=== PATIENT | female | born 1970 | race Caucasian/White ===

== ENCOUNTER 2017-12-03 16:12 | Inpatient (IN) | payer MEDICAID ==
[~2017-12-03] VITALS: Ht 154.9 cm; Wt 146.0 kg
[~2017-12-03 16:12] MED LIST: ALBU18HF2 INH; CEPH500C5 PO; FERR140T2 PO; FLUO20CA39 PO; FURO40TA4 PO; HYDR-4353 PO; INSU100V30 SQ; LEVO50TA8 PO; LISI10TA4 PO; LORA0.5T PO; METF500T PO; MONT10TA24 PO; OMEP20CA10 PO; POTA8TAB8 PO; PRED10TA PO
[2017-12-03 16:31] LABS: ABG BASE EXCESS 5.1 mmol/L (-2.0-3.0); ABG OXYGEN SATURATION 98.1 % (95-98); ABG PCO2 (T) 52.1 mmHg (32.0-45.0); ABG PH (T) 7.393 (7.350-7.450); ABG PO2 (T) 126.8 mmHg (83-108); ALLEN'S TEST Positive; FCOHb 1.5 % (0.5-1.5); FLOW 15 L/min; FMetHb 0.3 % (0.3-1.12); FO2Hb 96.3 % (94-100); TOTAL HEMOGLOBIN 11.1 G/dl (12.0-16.0)
[2017-12-03] MEDS ORDERED: SULF1TAB48 PO (16:40)
[2017-12-03] MEDS ORDERED: nitroGLYCERIN-Tridil 50MG/D5W 250 ML IV PRN (16:41)
[2017-12-03] MEDS ORDERED: furosemide 40mg/4ml inj IV ONE (16:45)
[2017-12-03 16:53] LABS: BASOPHILS # (AUTO) 0.1 X10'3 (0-0.2); BASOPHILS % (AUTO) 0.4 % (0-1); EOSINOPHILS # (AUTO) 0.1 X10'3 (0-0.9); HEMATOCRIT 32.8 % (35.0-45.0); LYMPHOCYTES # (AUTO) 1.2 X10'3 (1.1-4.8); LYMPHOCYTES % (AUTO) 10.9 % (21-51); MEAN CORPUSCULAR HEMOGLOBIN 21.8 PG (27.0-31.0); MEAN CORPUSCULAR HGB CONC 30.5 % (33.0-36.5); MEAN CORPUSCULAR VOLUME 71.4 FL (78-98); MEAN PLATELET VOLUME 9.8 FL (7.4-10.4); MONOCYTES # (AUTO) 0.9 X10'3 (0-0.9); MONOCYTES % (AUTO) 8.1 % (2-12); NEUTROPHILS % (AUTO) 79.6 % (42-75); PLATELET COUNT 329 X10'3 (140-440); RED CELL DISTRIBUTION WIDTH 27.5 % (11.5-14.5); WHITE BLOOD COUNT 11.3 X10'3 (4.5-11.0)
[2017-12-03 17:02] LABS: INR 1.1 INR; PARTIAL THROMBOPLASTIN TIME 24 SECONDS (22-32); PROTHROMBIN TIME 11.5 SECONDS (9.0-12.0)
[2017-12-03 17:08] LABS: ALANINE AMINOTRANSFERASE 22 U/L (12-78); ALBUMIN 3.8 G/DL (3.4-5.0); ALKALINE PHOSPHATASE 96 IU/L (46-116); ANION GAP 9 (8-16); ASPARTATE AMINO TRANSFERASE 14 U/L (10-37); BILIRUBIN,TOTAL 0.7 MG/DL (0.1-1.0); BLOOD UREA NITROGEN 13 MG/DL (7-18); BUN/CREATININE RATIO 15.1 (6.6-38.0); CALCIUM 9.4 MG/DL (8.5-10.1); CHLORIDE 100 MMOL/L (99-107); CREATININE 0.86 MG/DL (0.40-0.90); GLUCOSE 102 MG/DL (70-104); POTASSIUM 4.3 MMOL/L (3.5-5.1); SODIUM 141 MMOL/L (135-145); TOTAL PROTEIN 7.8 G/DL (6.4-8.2); eGFR 70 ML/MIN
[2017-12-03 17:15] LABS: MAGNESIUM 2.2 MG/DL (1.5-2.4)
[2017-12-03] MEDS ORDERED: morphine 4 MG/ML inj SYRINge IV ONE (17:25)
[2017-12-03 17:28] LABS: ANISOCYTOSIS 3+; PLATELET ESTIMATE NORMAL; SCHISTOCYTES FEW; STOMATOCYTES FEW; TARGET CELLS FEW
[2017-12-03] MEDS ORDERED: dextrose ORAL solution 15 GM/59 ML bottle PO PRN ×2 (18:30)
[2017-12-03] MEDS ORDERED: magnesium 1gm/100ml D5W IVPB 100 ML IV PRN (18:30)
[2017-12-03] MEDS ORDERED: potassium Cl 20 mEq SR tablet PO PRN ×2 (18:30)
[2017-12-03] MEDS ORDERED: potassium Cl 40MEQ/NS 500ml 500 ML IV PRN ×2 (18:30)
[2017-12-03] MEDS ORDERED: magnesium 4gm in 100ml NS 100 ML IV PRN (18:30)
[2017-12-03] MEDS ORDERED: acetaminophen 325mg tablet PO PRN ×2 (18:30)
[2017-12-03] MEDS ORDERED: insulin Lispro (HumaLOG) vial - multi-dose SQ SCH (18:30)
[2017-12-03] MEDS ORDERED: MESSAGE TO PHARMACY PO ONE (18:30)
[2017-12-03] MEDS ORDERED: magnesium hydroxide 30ml (MOM) UD suspension PO PRN (18:30)
[2017-12-03] MEDS ORDERED: dextrose 50%-water 50ml dispensing syringe IV PRN ×2 (18:30)
[2017-12-03] MEDS ORDERED: glucagon, human recombinant 1mg kit SUBCUT PRN (18:30)
[2017-12-03] MEDS ORDERED: magnesium Cl slow-release 64mg tablet PO PRN (18:30)
[2017-12-03] MEDS ORDERED: iohexol 350MG/ML 100ml bottle IV ONE (18:40)
[2017-12-03 19:05] LABS: ABG BASE EXCESS 6.6 mmol/L (-2.0-3.0); ABG HCO3 32.3 mmol/L (22.0-26.0); ABG OXYGEN SATURATION 95.8 % (95-98); ABG PCO2 (T) 51.7 mmHg (32.0-45.0); ABG PH (T) 7.413 (7.350-7.450); ABG PO2 (T) 86.1 mmHg (83-108); ALLEN'S TEST Positive; FCOHb 1.1 % (0.5-1.5); FMetHb 0.3 % (0.3-1.12); FO2Hb 94.5 % (94-100); MINUTE VOLUME 13 L/min; PATIENT TEMPERATURE 36.8; RESPIRATORY RATE 16 b/min; RESPIRATORY RATE (OBSERVED) 28 b/min; TOTAL HEMOGLOBIN 10.9 G/dl (12.0-16.0)
[2017-12-03 19:44] LABS: HEMOGLOBIN A1C 6.6 % (4.5-6.2)
[2017-12-03 20:00] VITALS: BP 107/46
[2017-12-03] MEDS: albuterol 2.5 MG/3 ML nebule NEB SCH ×2 (20:30→23:59)
[2017-12-03] MEDS ORDERED: non-formulary drug (Albuterol Sulfate (Ventolin Hfa) 2 PUFFS) INH SCH (21:00)
[2017-12-03] MEDS: insulin glargine (Lantus) pen - multi-dose SQ SCH (21:00)
[2017-12-03] MEDS: LORazepam 0.5 MG tablet PO SCH (21:21)
[2017-12-03] MEDS: potassium chloride 8mEq ER tablet PO SCH (21:22)
[2017-12-03] MEDS: heparin, porcine 5000 units/ml vial SQ SCH (21:26)
[2017-12-03] MEDS: furosemide 10 MG/1 ML 10ml inj IV SCH (21:27)
[2017-12-03 22:00] VITALS: BP 120/61
[2017-12-03] MEDS: HYDROcodone/acetaminophen 10/325mg tab PO PRN (22:15)
[2017-12-04] VITALS (8 sets, daily range): BP systolic 99–167; BP diastolic 53–90
[2017-12-04] MEDS: morphine 2 MG/ML inj. syringe IV PRN ×4 (00:20→18:00)
[2017-12-04] MEDS: LORazepam 0.5 MG tablet PO SCH ×4 (02:00→19:42)
[2017-12-04] MEDS: albuterol 2.5 MG/3 ML nebule NEB SCH ×6 (03:56→23:49)
[2017-12-04 06:08] LABS: BASOPHILS # (AUTO) 0.1 X10'3 (0-0.2); EOSINOPHILS # (AUTO) 0.2 X10'3 (0-0.9); EOSINOPHILS % (AUTO) 2.2 % (0-6); HEMATOCRIT 31.5 % (35.0-45.0); HEMOGLOBIN 9.6 g/dl (12.0-16.0); LYMPHOCYTES % (AUTO) 19.9 % (21-51); MEAN CORPUSCULAR HEMOGLOBIN 21.9 PG (27.0-31.0); MEAN CORPUSCULAR HGB CONC 30.6 % (33.0-36.5); MEAN CORPUSCULAR VOLUME 71.5 FL (78-98); MEAN PLATELET VOLUME 10.2 FL (7.4-10.4); MONOCYTES % (AUTO) 10.5 % (2-12); NEUTROPHILS # (AUTO) 6.6 X10'3 (1.8-7.7); NEUTROPHILS % (AUTO) 66.4 % (42-75); PLATELET COUNT 305 X10'3 (140-440); RED CELL DISTRIBUTION WIDTH 27.7 % (11.5-14.5); WHITE BLOOD COUNT 9.9 X10'3 (4.5-11.0)
[2017-12-04 06:20] LABS: ALBUMIN 3.7 G/DL (3.4-5.0); ANION GAP 8 (8-16); BLOOD UREA NITROGEN 13 MG/DL (7-18); BUN/CREATININE RATIO 14.1 (6.6-38.0); CALCIUM 9.3 MG/DL (8.5-10.1); CHLORIDE 98 MMOL/L (99-107); CHOL/HDL RATIO 5.2 (0.00-4.99); CHOLESTEROL 141 MG/DL (0-200); CREATININE 0.92 MG/DL (0.40-0.90); GLUCOSE 98 MG/DL (70-104); HDL CHOLESTEROL 27 MG/DL (35-60); LDL CHOLESTEROL 91 MG/DL (50-100); MAGNESIUM 2.1 MG/DL (1.5-2.4); POTASSIUM 3.6 MMOL/L (3.5-5.1); SODIUM 141 MMOL/L (135-145); TOTAL CARBON DIOXIDE 35.3 MMOL/L (24-32); TRIGLYCERIDES 162 MG/DL (20-135); eGFR 65 ML/MIN
[2017-12-04 07:05] LABS: PLATELET ESTIMATE NORMAL
[2017-12-04 07:06] LABS: ANISOCYTOSIS 3+; HYPOCHROMASIA 1+; POLYCHROMASIA FEW; STOMATOCYTES 1+
[2017-12-04 07:07] LABS: TARGET CELLS FEW
[2017-12-04] MEDS: heparin, porcine 5000 units/ml vial SQ SCH ×2 (07:23→19:43)
[2017-12-04] MEDS: levoTHYROXINE 25mcg tablet PO SCH (07:23)
[2017-12-04] MEDS: lisinopril 10 MG tablet PO SCH (07:23)
[2017-12-04] MEDS: pantoprazole 40mg Tablet.DR PO SCH (07:23)
[2017-12-04] MEDS: potassium chloride 8mEq ER tablet PO SCH ×2 (07:23→11:56)
[2017-12-04] MEDS: FLUoxetine 20mg capsule PO SCH (07:24)
[2017-12-04] MEDS: montelukast 10mg tablet PO SCH (07:24)
[2017-12-04] MEDS: furosemide 10 MG/1 ML 10ml inj IV SCH ×2 (07:25→15:43)
[2017-12-04] MEDS: K and/or MAG REPLACEMENT MC SCH (08:00)
[2017-12-04] MEDS: HYDROcodone/acetaminophen 10/325mg tab PO PRN ×3 (09:05→21:57)
[2017-12-04] MEDS ORDERED: furosemide 20 MG/2 ML vial IV ONE (09:35)
[2017-12-04] MEDS: CefTRIAXone/D5W-Rocephin 1gm 50 ML IV SCH (14:16)
[2017-12-04 16:29] LABS: CLARITY,URINE CLEAR (Clear); GLUCOSE, URINE NEGATIVE (Neg); KETONES,URINE NEGATIVE (Neg); LEUKOCYTE ESTERASE ,URINE NEGATIVE (Neg); NITRITES, URINE NEGATIVE (Neg); OCCULT BLOOD,URINE NEGATIVE (Neg); PH,URINE 7.5 (4.8-8.0); PROTEIN,URINE NEGATIVE (Neg); UROBILINOGEN,URINE 0.2 E.U/dL (0.2-1.0)
[2017-12-04 16:31] LABS: COLOR,URINE COLORLESS (Yellow)
[2017-12-04 16:32] LABS: UA COLLECTION TYPE NON-SPECIFIED
[2017-12-04] MEDS ORDERED: vancomycin/NS 1 GM ADD-VANTAGE 250 ML IV SCH (20:00)
[2017-12-04] MEDS: temazepam 15mg capsule PO PRN (20:27)
[2017-12-04] MEDS: potassium Cl 20 mEq SR tablet PO SCH (20:27)
[2017-12-04] MEDS: insulin glargine (Lantus) pen - multi-dose SQ SCH (21:00)
[2017-12-05] MEDS: furosemide 10 MG/1 ML 10ml inj IV SCH ×4 (00:07→23:52)
[2017-12-05] MEDS: morphine 2 MG/ML inj. syringe IV PRN ×4 (00:09→19:20)
[2017-12-05] MEDS: LORazepam 0.5 MG tablet PO SCH ×4 (02:17→20:25)
[2017-12-05 03:00] VITALS: BP 91/54
[2017-12-05] MEDS: albuterol 2.5 MG/3 ML nebule NEB SCH ×6 (03:33→22:52)
[2017-12-05] MEDS: HYDROcodone/acetaminophen 10/325mg tab PO PRN ×4 (04:13→23:52)
[2017-12-05 06:00] VITALS: BP 123/73
[2017-12-05 07:05] LABS: ALBUMIN 3.6 G/DL (3.4-5.0); ANION GAP 7 (8-16); BLOOD UREA NITROGEN 16 MG/DL (7-18); CALCIUM 8.8 MG/DL (8.5-10.1); CHLORIDE 97 MMOL/L (99-107); GLUCOSE 100 MG/DL (70-104); MAGNESIUM 2.1 MG/DL (1.5-2.4); POTASSIUM 3.9 MMOL/L (3.5-5.1); SODIUM 141 MMOL/L (135-145); TOTAL CARBON DIOXIDE 36.8 MMOL/L (24-32); eGFR 59 ML/MIN
[2017-12-05 07:06] LABS: BASOPHILS # (AUTO) 0.1 X10'3 (0-0.2); BASOPHILS % (AUTO) 1.1 % (0-1); EOSINOPHILS # (AUTO) 0.2 X10'3 (0-0.9); HEMATOCRIT 33.1 % (35.0-45.0); HEMOGLOBIN 9.8 g/dl (12.0-16.0); LYMPHOCYTES # (AUTO) 1.5 X10'3 (1.1-4.8); LYMPHOCYTES % (AUTO) 17.2 % (21-51); MEAN CORPUSCULAR HEMOGLOBIN 21.6 PG (27.0-31.0); MEAN CORPUSCULAR HGB CONC 29.6 % (33.0-36.5); MEAN CORPUSCULAR VOLUME 72.8 FL (78-98); MEAN PLATELET VOLUME 10.3 FL (7.4-10.4); MONOCYTES # (AUTO) 0.9 X10'3 (0-0.9); MONOCYTES % (AUTO) 10.6 % (2-12); NEUTROPHILS # (AUTO) 5.9 X10'3 (1.8-7.7); NEUTROPHILS % (AUTO) 69.1 % (42-75); PLATELET COUNT 340 X10'3 (140-440); RED BLOOD COUNT 4.55 X10'6 (4.20-5.60); RED CELL DISTRIBUTION WIDTH 27.3 % (11.5-14.5); WHITE BLOOD COUNT 8.6 X10'3 (4.5-11.0)
[2017-12-05] MEDS: pantoprazole 40mg Tablet.DR PO SCH (07:38)
[2017-12-05] MEDS: montelukast 10mg tablet PO SCH (07:38)
[2017-12-05] MEDS: lisinopril 10 MG tablet PO SCH (07:38)
[2017-12-05] MEDS: levoTHYROXINE 25mcg tablet PO SCH (07:38)
[2017-12-05] MEDS: potassium Cl 20 mEq SR tablet PO SCH ×3 (07:38→20:25)
[2017-12-05] MEDS: FLUoxetine 20mg capsule PO SCH (07:38)
[2017-12-05] MEDS: CefTRIAXone/D5W-Rocephin 1gm 50 ML IV SCH (07:39)
[2017-12-05] MEDS: heparin, porcine 5000 units/ml vial SQ SCH ×2 (07:41→20:33)
[2017-12-05] MEDS: K and/or MAG REPLACEMENT MC SCH (07:56)
[2017-12-05 09:14] LABS: PLATELET ESTIMATE NORMAL
[2017-12-05 09:15] LABS: ANISOCYTOSIS 3+; HYPOCHROMASIA 1+; MICROCYTOSIS 1+; POLYCHROMASIA 1+; STOMATOCYTES 2+
[2017-12-05] MEDS: mag hydrox/Alum hydrox/simeth 30ml oral suspension PO PRN (09:39)
[2017-12-05 11:00] VITALS: BP 114/66
[2017-12-05] MEDS ORDERED: VANCOMYCIN LEVEL IV NR (13:30)
[2017-12-05 15:00] VITALS: BP 121/101
[2017-12-05] MEDS: vancomycin inj 1,250 MG in normal saline 250ml IV soln 250 ML IV SCH ×2 (15:59→23:54)
[2017-12-05 19:00] VITALS: BP 118/67
[2017-12-05] MEDS: lactobacillus rhamnosus 10,000 MMU CELLS/CAPSULE PO SCH (20:25)
[2017-12-05] MEDS: insulin glargine (Lantus) pen - multi-dose SQ SCH (21:00)
[2017-12-05] MEDS: temazepam 15mg capsule PO PRN (21:55)
[2017-12-05 23:00] VITALS: BP 115/70
[2017-12-06] MEDS: LORazepam 0.5 MG tablet PO SCH ×4 (01:40→20:21)
[2017-12-06] MEDS: morphine 2 MG/ML inj. syringe IV PRN ×4 (01:41→22:08)
[2017-12-06] MEDS: albuterol 2.5 MG/3 ML nebule NEB SCH ×6 (02:57→22:49)
[2017-12-06 03:00] VITALS: BP 116/70
[2017-12-06 06:00] VITALS: BP 140/75
[2017-12-06 06:46] LABS: ALBUMIN 3.6 G/DL (3.4-5.0); ANION GAP 7 (8-16); BLOOD UREA NITROGEN 15 MG/DL (7-18); BUN/CREATININE RATIO 17.2 (6.6-38.0); CALCIUM 8.5 MG/DL (8.5-10.1); CHLORIDE 98 MMOL/L (99-107); CREATININE 0.87 MG/DL (0.40-0.90); GLUCOSE 103 MG/DL (70-104); MAGNESIUM 2.2 MG/DL (1.5-2.4); POTASSIUM 3.9 MMOL/L (3.5-5.1); SODIUM 139 MMOL/L (135-145); eGFR 69 ML/MIN
[2017-12-06] MEDS: HYDROcodone/acetaminophen 10/325mg tab PO PRN ×3 (06:57→20:23)
[2017-12-06] MEDS: pantoprazole 40mg Tablet.DR PO SCH (06:57)
[2017-12-06] MEDS: levoTHYROXINE 25mcg tablet PO SCH (06:58)
[2017-12-06] MEDS: lisinopril 10 MG tablet PO SCH (07:52)
[2017-12-06] MEDS: potassium Cl 20 mEq SR tablet PO SCH ×3 (07:52→20:21)
[2017-12-06] MEDS: FLUoxetine 20mg capsule PO SCH (07:52)
[2017-12-06] MEDS: vancomycin inj 1,250 MG in normal saline 250ml IV soln 250 ML IV SCH ×3 (07:52→22:50)
[2017-12-06] MEDS: montelukast 10mg tablet PO SCH (07:52)
[2017-12-06] MEDS: lactobacillus rhamnosus 10,000 MMU CELLS/CAPSULE PO SCH ×2 (07:52→20:22)
[2017-12-06] MEDS: heparin, porcine 5000 units/ml vial SQ SCH ×2 (07:53→20:24)
[2017-12-06] MEDS: K and/or MAG REPLACEMENT MC SCH (08:00)
[2017-12-06] MEDS: furosemide 10 MG/1 ML 10ml inj IV SCH ×2 (09:03→15:32)
[2017-12-06] MEDS: CefTRIAXone/D5W-Rocephin 1gm 50 ML IV SCH (10:58)
[2017-12-06 11:00] VITALS: BP 116/71
[2017-12-06] MEDS ORDERED: VANCOMYCIN LEVEL IV NR (14:30)
[2017-12-06 15:51] VITALS: BP 125/71
[2017-12-06 19:00] VITALS: BP 130/78
[2017-12-06] MEDS: insulin glargine (Lantus) pen - multi-dose SQ SCH (21:00)
[2017-12-06] MEDS: temazepam 15mg capsule PO PRN (22:56)
[2017-12-06 23:00] VITALS: BP 110/63
[2017-12-07] MEDS: furosemide 10 MG/1 ML 10ml inj IV SCH ×3 (00:23→20:17)
[2017-12-07] MEDS: LORazepam 0.5 MG tablet PO SCH ×4 (02:00→20:17)
[2017-12-07 03:00] VITALS: BP 109/72
[2017-12-07] MEDS: albuterol 2.5 MG/3 ML nebule NEB SCH ×6 (03:05→23:12)
[2017-12-07 04:28] LABS: ALBUMIN 3.3 G/DL (3.4-5.0); ANION GAP 5 (8-16); BLOOD UREA NITROGEN 19 MG/DL (7-18); BUN/CREATININE RATIO 17.6 (6.6-38.0); CALCIUM 8.8 MG/DL (8.5-10.1); CHLORIDE 98 MMOL/L (99-107); CREATININE 1.08 MG/DL (0.40-0.90); GLUCOSE 97 MG/DL (70-104); MAGNESIUM 2.2 MG/DL (1.5-2.4); POTASSIUM 3.9 MMOL/L (3.5-5.1); SODIUM 141 MMOL/L (135-145); TOTAL CARBON DIOXIDE 38.4 MMOL/L (24-32); eGFR 54 ML/MIN
[2017-12-07 04:35] LABS: VANCOMYCIN,TROUGH 33.1 UG/ML (6.0-14.0)
[2017-12-07] MEDS: morphine 2 MG/ML inj. syringe IV PRN ×5 (04:46→21:46)
[2017-12-07 05:31] LABS: BASOPHILS # (AUTO) 0.1 X10'3 (0-0.2); BASOPHILS % (AUTO) 0.8 % (0-1); EOSINOPHILS # (AUTO) 0.2 X10'3 (0-0.9); EOSINOPHILS % (AUTO) 2.6 % (0-6); HEMATOCRIT 30.9 % (35.0-45.0); HEMOGLOBIN 9.2 g/dl (12.0-16.0); LYMPHOCYTES # (AUTO) 1.6 X10'3 (1.1-4.8); LYMPHOCYTES % (AUTO) 16.5 % (21-51); MEAN CORPUSCULAR HEMOGLOBIN 21.8 PG (27.0-31.0); MEAN CORPUSCULAR HGB CONC 29.8 % (33.0-36.5); MEAN CORPUSCULAR VOLUME 72.9 FL (78-98); MEAN PLATELET VOLUME 10.6 FL (7.4-10.4); MONOCYTES # (AUTO) 1.3 X10'3 (0-0.9); MONOCYTES % (AUTO) 13.2 % (2-12); NEUTROPHILS # (AUTO) 6.3 X10'3 (1.8-7.7); NEUTROPHILS % (AUTO) 66.9 % (42-75); PLATELET COUNT 337 X10'3 (140-440); RED BLOOD COUNT 4.24 X10'6 (4.20-5.60); WHITE BLOOD COUNT 9.5 X10'3 (4.5-11.0)
[2017-12-07 06:00] VITALS: BP 107/46
[2017-12-07] MEDS ORDERED: VANCOMYCIN LEVEL IV ONE ×2 (06:30→22:30)
[2017-12-07 07:13] LABS: ANISOCYTOSIS 3+; LARGE PLATELETS FEW; PLATELET ESTIMATE NORMAL
[2017-12-07 07:15] LABS: GIANT PLATELET FEW; MICROCYTOSIS 1+
[2017-12-07 07:16] LABS: HYPOCHROMASIA 1+
[2017-12-07] MEDS: lisinopril 10 MG tablet PO SCH (08:00)
[2017-12-07] MEDS: K and/or MAG REPLACEMENT MC SCH (08:00)
[2017-12-07] MEDS: vancomycin inj 1,250 MG in normal saline 250ml IV soln 250 ML IV SCH ×2 (08:08→14:45)
[2017-12-07] MEDS: CefTRIAXone/D5W-Rocephin 1gm 50 ML IV SCH (08:08)
[2017-12-07] MEDS: pantoprazole 40mg Tablet.DR PO SCH (08:08)
[2017-12-07] MEDS: HYDROcodone/acetaminophen 10/325mg tab PO PRN ×2 (08:09→14:46)
[2017-12-07] MEDS: montelukast 10mg tablet PO SCH (08:09)
[2017-12-07] MEDS: lactobacillus rhamnosus 10,000 MMU CELLS/CAPSULE PO SCH ×2 (08:09→20:17)
[2017-12-07] MEDS: levoTHYROXINE 25mcg tablet PO SCH (08:09)
[2017-12-07] MEDS: potassium Cl 20 mEq SR tablet PO SCH ×3 (08:09→20:17)
[2017-12-07] MEDS: heparin, porcine 5000 units/ml vial SQ SCH ×2 (08:11→20:17)
[2017-12-07] MEDS: FLUoxetine 20mg capsule PO SCH (08:12)
[2017-12-07 11:00] VITALS: BP 115/53
[2017-12-07 15:00] VITALS: BP 129/83
[2017-12-07 19:00] VITALS: BP 140/84
[2017-12-07] MEDS ORDERED: CefTRIAXone/D5W-Rocephin 1gm 50 ML IV ONE (19:15)
[2017-12-07] MEDS ORDERED: clotrimazole 1% vaginal cream 45gm VG SCH (20:00)
[2017-12-07] MEDS: clotrimazole 1% vaginal cream 45gm VG SCH (20:30)
[2017-12-07] MEDS: linezolid 600mg tablet PO SCH (20:30)
[2017-12-07] MEDS: insulin glargine (Lantus) pen - multi-dose SQ SCH (21:00)
[2017-12-07] MEDS: temazepam 15mg capsule PO PRN (21:35)
[2017-12-07 23:00] VITALS: BP 116/59
[2017-12-08] MEDS: LORazepam 0.5 MG tablet PO SCH ×4 (02:29→20:09)
[2017-12-08] MEDS: morphine 2 MG/ML inj. syringe IV PRN ×4 (02:30→17:19)
[2017-12-08] MEDS: albuterol 2.5 MG/3 ML nebule NEB SCH ×6 (03:14→23:37)
[2017-12-08 06:00] VITALS: BP 111/51
[2017-12-08 06:06] LABS: ANION GAP 7 (8-16); BLOOD UREA NITROGEN 19 MG/DL (7-18); BUN/CREATININE RATIO 23.2 (6.6-38.0); CALCIUM 8.7 MG/DL (8.5-10.1); CHLORIDE 98 MMOL/L (99-107); CREATININE 0.82 MG/DL (0.40-0.90); GLUCOSE 120 MG/DL (70-104); MAGNESIUM 2.3 MG/DL (1.5-2.4); POTASSIUM 3.6 MMOL/L (3.5-5.1); SODIUM 140 MMOL/L (135-145); TOTAL CARBON DIOXIDE 35.4 MMOL/L (24-32); eGFR 74 ML/MIN
[2017-12-08 06:07] LABS: ALBUMIN 3.4 G/DL (3.4-5.0)
[2017-12-08] MEDS: levoTHYROXINE 25mcg tablet PO SCH (07:39)
[2017-12-08] MEDS: pantoprazole 40mg Tablet.DR PO SCH (07:39)
[2017-12-08] MEDS: potassium Cl 20 mEq SR tablet PO SCH ×3 (07:39→20:09)
[2017-12-08] MEDS: FLUoxetine 20mg capsule PO SCH (07:40)
[2017-12-08] MEDS: lisinopril 10 MG tablet PO SCH (07:40)
[2017-12-08] MEDS: montelukast 10mg tablet PO SCH (07:40)
[2017-12-08] MEDS: linezolid 600mg tablet PO SCH ×2 (07:40→20:09)
[2017-12-08] MEDS: heparin, porcine 5000 units/ml vial SQ SCH ×2 (07:40→20:09)
[2017-12-08] MEDS: lactobacillus rhamnosus 10,000 MMU CELLS/CAPSULE PO SCH ×2 (07:41→20:09)
[2017-12-08] MEDS: furosemide 10 MG/1 ML 10ml inj IV SCH ×2 (07:41→20:10)
[2017-12-08] MEDS: CefTRIAXone 2gm/D5W 50ml IV SCH (07:42)
[2017-12-08] MEDS: K and/or MAG REPLACEMENT MC SCH (08:00)
[2017-12-08] MEDS: clotrimazole 1% vaginal cream 45gm VG SCH ×2 (08:00→20:23)
[2017-12-08 11:00] VITALS: BP 110/54
[2017-12-08 15:00] VITALS: BP 86/44
[2017-12-08] MEDS: HYDROcodone/acetaminophen 10/325mg tab PO PRN ×2 (15:16→20:13)
[2017-12-08 19:00] VITALS: BP 127/61
[2017-12-08] MEDS: insulin glargine (Lantus) pen - multi-dose SQ SCH (21:00)
[2017-12-08 23:00] VITALS: BP 100/42
[2017-12-09] MEDS: LORazepam 0.5 MG tablet PO SCH ×4 (02:11→19:47)
[2017-12-09] MEDS: morphine 2 MG/ML inj. syringe IV PRN ×5 (02:11→23:29)
[2017-12-09 03:00] VITALS: BP 102/41
[2017-12-09] MEDS: albuterol 2.5 MG/3 ML nebule NEB SCH ×7 (03:05→23:30)
[2017-12-09 06:00] VITALS: BP 116/65
[2017-12-09] MEDS: HYDROcodone/acetaminophen 10/325mg tab PO PRN ×3 (07:39→20:56)
[2017-12-09] MEDS: potassium Cl 20 mEq SR tablet PO SCH ×3 (08:00→20:56)
[2017-12-09] MEDS: K and/or MAG REPLACEMENT MC SCH (08:00)
[2017-12-09] MEDS: lisinopril 10 MG tablet PO SCH (08:00)
[2017-12-09] MEDS: CefTRIAXone 2gm/D5W 50ml IV SCH (09:06)
[2017-12-09] MEDS: levoTHYROXINE 25mcg tablet PO SCH (09:09)
[2017-12-09] MEDS: linezolid 600mg tablet PO SCH ×2 (09:09→19:48)
[2017-12-09] MEDS: furosemide 10 MG/1 ML 10ml inj IV SCH ×2 (09:10→19:47)
[2017-12-09] MEDS: montelukast 10mg tablet PO SCH (09:10)
[2017-12-09] MEDS: FLUoxetine 20mg capsule PO SCH (09:10)
[2017-12-09] MEDS: heparin, porcine 5000 units/ml vial SQ SCH ×2 (09:11→19:48)
[2017-12-09] MEDS: pantoprazole 40mg Tablet.DR PO SCH (09:12)
[2017-12-09] MEDS: lactobacillus rhamnosus 10,000 MMU CELLS/CAPSULE PO SCH ×2 (09:12→19:47)
[2017-12-09] MEDS: clotrimazole 1% vaginal cream 45gm VG SCH ×2 (09:13→21:44)
[2017-12-09 11:00] VITALS: BP 111/67
[2017-12-09 15:00] VITALS: BP 122/68
[2017-12-09 19:00] VITALS: BP 102/61
[2017-12-09] MEDS: insulin glargine (Lantus) pen - multi-dose SQ SCH (21:00)
[2017-12-09 23:07] VITALS: BP 107/59
[2017-12-10] MEDS: mag hydrox/Alum hydrox/simeth 30ml oral suspension PO PRN (01:32)
[2017-12-10] MEDS: temazepam 15mg capsule PO PRN ×2 (01:53→20:16)
[2017-12-10] MEDS: LORazepam 0.5 MG tablet PO SCH ×4 (01:53→20:11)
[2017-12-10 03:00] VITALS: BP 131/51
[2017-12-10] MEDS: albuterol 2.5 MG/3 ML nebule NEB SCH ×6 (03:01→23:25)
[2017-12-10] MEDS: morphine 2 MG/ML inj. syringe IV PRN ×5 (04:08→22:37)
[2017-12-10] MEDS: HYDROcodone/acetaminophen 10/325mg tab PO PRN ×3 (06:25→20:17)
[2017-12-10 06:55] VITALS: BP 95/73
[2017-12-10] MEDS: K and/or MAG REPLACEMENT MC SCH (08:00)
[2017-12-10] MEDS: pantoprazole 40mg Tablet.DR PO SCH (08:02)
[2017-12-10] MEDS: montelukast 10mg tablet PO SCH (08:02)
[2017-12-10] MEDS: linezolid 600mg tablet PO SCH ×2 (08:02→20:11)
[2017-12-10] MEDS: levoTHYROXINE 25mcg tablet PO SCH (08:02)
[2017-12-10] MEDS: lactobacillus rhamnosus 10,000 MMU CELLS/CAPSULE PO SCH ×2 (08:02→20:11)
[2017-12-10] MEDS: FLUoxetine 20mg capsule PO SCH (08:03)
[2017-12-10] MEDS: CefTRIAXone 2gm/D5W 50ml IV SCH (08:04)
[2017-12-10] MEDS: heparin, porcine 5000 units/ml vial SQ SCH ×2 (08:05→20:10)
[2017-12-10 08:20] VITALS: BP 110/61
[2017-12-10] MEDS: furosemide 10 MG/1 ML 10ml inj IV SCH ×2 (08:25→20:11)
[2017-12-10] MEDS: clotrimazole 1% vaginal cream 45gm VG SCH ×2 (08:26→20:17)
[2017-12-10] MEDS: lisinopril 10 MG tablet PO SCH (08:26)
[2017-12-10] MEDS: potassium Cl 20 mEq SR tablet PO SCH ×3 (08:27→20:17)
[2017-12-10 11:00] VITALS: BP 104/57
[2017-12-10 19:00] VITALS: BP 123/64
[2017-12-10] MEDS: insulin glargine (Lantus) pen - multi-dose SQ SCH (20:56)
[2017-12-11] VITALS (7 sets, daily range): BP systolic 92–116; BP diastolic 39–67
[2017-12-11] MEDS: LORazepam 0.5 MG tablet PO SCH ×4 (02:17→20:19)
[2017-12-11] MEDS: morphine 2 MG/ML inj. syringe IV PRN ×6 (02:49→23:51)
[2017-12-11] MEDS: albuterol 2.5 MG/3 ML nebule NEB SCH ×6 (03:26→23:23)
[2017-12-11] MEDS: HYDROcodone/acetaminophen 10/325mg tab PO PRN ×4 (04:36→21:31)
[2017-12-11 05:34] LABS: BASOPHILS # (AUTO) 0.1 X10'3 (0-0.2); BASOPHILS % (AUTO) 0.9 % (0-1); EOSINOPHILS # (AUTO) 0.2 X10'3 (0-0.9); EOSINOPHILS % (AUTO) 1.9 % (0-6); HEMATOCRIT 29.4 % (35.0-45.0); HEMOGLOBIN 9.2 g/dl (12.0-16.0); LYMPHOCYTES # (AUTO) 1.1 X10'3 (1.1-4.8); LYMPHOCYTES % (AUTO) 13.5 % (21-51); MEAN CORPUSCULAR HEMOGLOBIN 22.8 PG (27.0-31.0); MEAN CORPUSCULAR HGB CONC 31.3 % (33.0-36.5); MEAN PLATELET VOLUME 10.4 FL (7.4-10.4); MONOCYTES # (AUTO) 0.7 X10'3 (0-0.9); MONOCYTES % (AUTO) 8.9 % (2-12); NEUTROPHILS # (AUTO) 6.3 X10'3 (1.8-7.7); NEUTROPHILS % (AUTO) 74.8 % (42-75); PLATELET COUNT 328 X10'3 (140-440); RED BLOOD COUNT 4.03 X10'6 (4.20-5.60); RED CELL DISTRIBUTION WIDTH 24.7 % (11.5-14.5); WHITE BLOOD COUNT 8.4 X10'3 (4.5-11.0)
[2017-12-11 05:40] LABS: ALBUMIN 3.6 G/DL (3.4-5.0); ANION GAP 7 (8-16); BLOOD UREA NITROGEN 30 MG/DL (7-18); BUN/CREATININE RATIO 24.6 (6.6-38.0); CALCIUM 8.9 MG/DL (8.5-10.1); CHLORIDE 98 MMOL/L (99-107); CREATININE 1.22 MG/DL (0.40-0.90); GLUCOSE 116 MG/DL (70-104); POTASSIUM 4.2 MMOL/L (3.5-5.1); SODIUM 138 MMOL/L (135-145); TOTAL CARBON DIOXIDE 33.2 MMOL/L (24-32); eGFR 47 ML/MIN
[2017-12-11 06:27] LABS: LARGE PLATELETS FEW; PLATELET ESTIMATE NORMAL
[2017-12-11] MEDS: heparin, porcine 5000 units/ml vial SQ SCH ×2 (07:57→20:20)
[2017-12-11] MEDS: clotrimazole 1% vaginal cream 45gm VG SCH ×2 (07:57→21:32)
[2017-12-11] MEDS: lisinopril 10 MG tablet PO SCH (07:58)
[2017-12-11] MEDS: lactobacillus rhamnosus 10,000 MMU CELLS/CAPSULE PO SCH ×2 (07:58→20:19)
[2017-12-11] MEDS: furosemide 10 MG/1 ML 10ml inj IV SCH ×2 (07:58→20:19)
[2017-12-11] MEDS: CefTRIAXone 2gm/D5W 50ml IV SCH (07:58)
[2017-12-11] MEDS: FLUoxetine 20mg capsule PO SCH (07:58)
[2017-12-11] MEDS: levoTHYROXINE 25mcg tablet PO SCH (07:59)
[2017-12-11] MEDS: pantoprazole 40mg Tablet.DR PO SCH (07:59)
[2017-12-11] MEDS: potassium Cl 20 mEq SR tablet PO SCH ×3 (07:59→20:19)
[2017-12-11] MEDS: montelukast 10mg tablet PO SCH (07:59)
[2017-12-11] MEDS: K and/or MAG REPLACEMENT MC SCH (08:00)
[2017-12-11] MEDS: linezolid 600mg tablet PO SCH ×2 (09:57→20:35)
[2017-12-11] MEDS: ondansetron/PF 4mg/2ml inj IV PRN (15:46)
[2017-12-11] MEDS: insulin glargine (Lantus) pen - multi-dose SQ SCH (21:00)
[2017-12-11] MEDS: temazepam 15mg capsule PO PRN (21:31)
[2017-12-12] VITALS (7 sets, daily range): BP systolic 91–111; BP diastolic 35–56
[2017-12-12] MEDS: LORazepam 0.5 MG tablet PO SCH ×4 (02:43→21:08)
[2017-12-12] MEDS: morphine 2 MG/ML inj. syringe IV PRN ×4 (04:00→19:12)
[2017-12-12] MEDS: albuterol 2.5 MG/3 ML nebule NEB SCH ×6 (04:00→22:56)
[2017-12-12 04:08] LABS: ALBUMIN 3.8 G/DL (3.4-5.0); ANION GAP 3 (8-16); BLOOD UREA NITROGEN 31 MG/DL (7-18); BUN/CREATININE RATIO 23.7 (6.6-38.0); CALCIUM 9.4 MG/DL (8.5-10.1); CHLORIDE 98 MMOL/L (99-107); CREATININE 1.31 MG/DL (0.40-0.90); GLUCOSE 116 MG/DL (70-104); POTASSIUM 4.5 MMOL/L (3.5-5.1); SODIUM 138 MMOL/L (135-145); TOTAL CARBON DIOXIDE 36.8 MMOL/L (24-32); eGFR 43 ML/MIN
[2017-12-12 04:46] LABS: BASOPHILS # (AUTO) 0.1 X10'3 (0-0.2); BASOPHILS % (AUTO) 0.9 % (0-1); EOSINOPHILS # (AUTO) 0.2 X10'3 (0-0.9); EOSINOPHILS % (AUTO) 2.4 % (0-6); HEMATOCRIT 30.2 % (35.0-45.0); HEMOGLOBIN 9.5 g/dl (12.0-16.0); LYMPHOCYTES % (AUTO) 11.5 % (21-51); MEAN CORPUSCULAR HGB CONC 31.5 % (33.0-36.5); MEAN CORPUSCULAR VOLUME 73.1 FL (78-98); MEAN PLATELET VOLUME 10.5 FL (7.4-10.4); MONOCYTES # (AUTO) 0.8 X10'3 (0-0.9); MONOCYTES % (AUTO) 8.9 % (2-12); NEUTROPHILS # (AUTO) 6.9 X10'3 (1.8-7.7); NEUTROPHILS % (AUTO) 76.3 % (42-75); PLATELET COUNT 344 X10'3 (140-440); RED BLOOD COUNT 4.13 X10'6 (4.20-5.60)
[2017-12-12 07:42] LABS: PLATELET ESTIMATE NORMAL
[2017-12-12 07:43] LABS: ANISOCYTOSIS 3+; MICROCYTOSIS 2+; POLYCHROMASIA 1+; STOMATOCYTES 2+; TARGET CELLS FEW
[2017-12-12] MEDS: FLUoxetine 20mg capsule PO SCH (07:48)
[2017-12-12] MEDS: levoTHYROXINE 25mcg tablet PO SCH (07:48)
[2017-12-12] MEDS: linezolid 600mg tablet PO SCH ×2 (07:49→19:04)
[2017-12-12] MEDS: montelukast 10mg tablet PO SCH (07:49)
[2017-12-12] MEDS: potassium Cl 20 mEq SR tablet PO SCH ×3 (07:49→21:08)
[2017-12-12] MEDS: lactobacillus rhamnosus 10,000 MMU CELLS/CAPSULE PO SCH ×2 (07:49→19:05)
[2017-12-12] MEDS: pantoprazole 40mg Tablet.DR PO SCH (07:49)
[2017-12-12] MEDS: lisinopril 10 MG tablet PO SCH (07:49)
[2017-12-12] MEDS: ondansetron/PF 4mg/2ml inj IV PRN ×3 (07:50→23:21)
[2017-12-12] MEDS: CefTRIAXone 2gm/D5W 50ml IV SCH (07:50)
[2017-12-12] MEDS: heparin, porcine 5000 units/ml vial SQ SCH ×2 (07:50→19:04)
[2017-12-12] MEDS: furosemide 10 MG/1 ML 10ml inj IV SCH ×2 (07:50→19:06)
[2017-12-12] MEDS: HYDROcodone/acetaminophen 10/325mg tab PO PRN ×2 (07:51→15:23)
[2017-12-12] MEDS: clotrimazole 1% vaginal cream 45gm VG SCH ×2 (07:59→19:14)
[2017-12-12] MEDS: K and/or MAG REPLACEMENT MC SCH (08:00)
[2017-12-12] MEDS: insulin glargine (Lantus) pen - multi-dose SQ SCH (21:00)
[2017-12-12] MEDS: temazepam 15mg capsule PO PRN (22:15)
[2017-12-13] VITALS (7 sets, daily range): BP systolic 93–125; BP diastolic 50–67
[2017-12-13] MEDS: morphine 2 MG/ML inj. syringe IV PRN ×5 (00:41→21:43)
[2017-12-13] MEDS: LORazepam 0.5 MG tablet PO SCH ×4 (02:46→20:22)
[2017-12-13] MEDS: albuterol 2.5 MG/3 ML nebule NEB SCH ×6 (03:30→23:22)
[2017-12-13] MEDS: HYDROcodone/acetaminophen 10/325mg tab PO PRN ×3 (05:36→20:24)
[2017-12-13 07:11] LABS: HEMATOCRIT 28.7 % (35.0-45.0); HEMOGLOBIN 9.1 g/dl (12.0-16.0); MEAN CORPUSCULAR HEMOGLOBIN 23.2 PG (27.0-31.0); MEAN CORPUSCULAR HGB CONC 31.6 % (33.0-36.5); MEAN CORPUSCULAR VOLUME 73.5 FL (78-98); MEAN PLATELET VOLUME 9.7 FL (7.4-10.4); PLATELET COUNT 323 X10'3 (140-440); RED CELL DISTRIBUTION WIDTH 24.6 % (11.5-14.5); WHITE BLOOD COUNT 11.7 X10'3 (4.5-11.0)
[2017-12-13 07:20] LABS: ALBUMIN 3.5 G/DL (3.4-5.0); ANION GAP 7 (8-16); BLOOD UREA NITROGEN 39 MG/DL (7-18); BUN/CREATININE RATIO 22.3 (6.6-38.0); CALCIUM 9.6 MG/DL (8.5-10.1); CHLORIDE 97 MMOL/L (99-107); CREATININE 1.75 MG/DL (0.40-0.90); GLUCOSE 116 MG/DL (70-104); POTASSIUM 5.2 MMOL/L (3.5-5.1); SODIUM 137 MMOL/L (135-145); TOTAL CARBON DIOXIDE 32.9 MMOL/L (24-32); eGFR 31 ML/MIN
[2017-12-13] MEDS: montelukast 10mg tablet PO SCH (07:22)
[2017-12-13] MEDS: linezolid 600mg tablet PO SCH (07:22)
[2017-12-13] MEDS: ondansetron/PF 4mg/2ml inj IV PRN (07:23)
[2017-12-13] MEDS: pantoprazole 40mg Tablet.DR PO SCH (07:23)
[2017-12-13] MEDS: lactobacillus rhamnosus 10,000 MMU CELLS/CAPSULE PO SCH ×2 (07:24→20:22)
[2017-12-13] MEDS: levoTHYROXINE 25mcg tablet PO SCH (07:24)
[2017-12-13] MEDS: FLUoxetine 20mg capsule PO SCH (07:24)
[2017-12-13] MEDS: CefTRIAXone 2gm/D5W 50ml IV SCH (07:25)
[2017-12-13] MEDS: clotrimazole 1% vaginal cream 45gm VG SCH ×2 (07:29→20:22)
[2017-12-13] MEDS: heparin, porcine 5000 units/ml vial SQ SCH ×2 (07:38→20:22)
[2017-12-13] MEDS: furosemide 10 MG/1 ML 10ml inj IV SCH ×4 (08:00→23:59)
[2017-12-13] MEDS: potassium Cl 20 mEq SR tablet PO SCH ×3 (08:00→21:00)
[2017-12-13] MEDS: K and/or MAG REPLACEMENT MC SCH (08:00)
[2017-12-13] MEDS: lisinopril 10 MG tablet PO SCH (08:00)
[2017-12-13 08:23] LABS: PLATELET ESTIMATE NORMAL; TOTAL CELLS COUNTED 100
[2017-12-13 08:24] LABS: ANISOCYTOSIS 3+
[2017-12-13 08:25] LABS: POLYCHROMASIA 1+
[2017-12-13 08:26] LABS: MICROCYTOSIS 2+
[2017-12-13] MEDS: insulin glargine (Lantus) pen - multi-dose SQ SCH (21:00)
[2017-12-13] MEDS: temazepam 15mg capsule PO PRN (23:56)
[2017-12-14] VITALS (7 sets, daily range): BP systolic 87–118; BP diastolic 44–57
[2017-12-14] MEDS: morphine 2 MG/ML inj. syringe IV PRN ×5 (01:48→22:13)
[2017-12-14] MEDS: LORazepam 0.5 MG tablet PO SCH ×4 (02:00→22:13)
[2017-12-14] MEDS: albuterol 2.5 MG/3 ML nebule NEB SCH ×4 (04:00→23:12)
[2017-12-14] MEDS: furosemide 10 MG/1 ML 10ml inj IV SCH ×3 (07:47→17:24)
[2017-12-14] MEDS: pantoprazole 40mg Tablet.DR PO SCH (07:48)
[2017-12-14] MEDS: lisinopril 10 MG tablet PO SCH (07:48)
[2017-12-14] MEDS: montelukast 10mg tablet PO SCH (07:49)
[2017-12-14] MEDS: levoTHYROXINE 25mcg tablet PO SCH (07:49)
[2017-12-14] MEDS: lactobacillus rhamnosus 10,000 MMU CELLS/CAPSULE PO SCH ×2 (07:49→19:51)
[2017-12-14] MEDS: FLUoxetine 20mg capsule PO SCH (07:49)
[2017-12-14] MEDS: K and/or MAG REPLACEMENT MC SCH (08:00)
[2017-12-14] MEDS ORDERED: HYDROcodone/acetaminophen 10/325mg tab PO PRN (08:55)
[2017-12-14] MEDS ORDERED: benzocaine/menthol oral lozeng 1 EACH BOX MM PRN (09:25)
[2017-12-14 10:12] LABS: EOSINOPHILS # (AUTO) 0.1 X10'3 (0-0.9); MONOCYTES # (AUTO) 0.8 X10'3 (0-0.9)
[2017-12-14 10:17] LABS: ALBUMIN 3.4 G/DL (3.4-5.0); ANION GAP 7 (8-16); BLOOD UREA NITROGEN 40 MG/DL (7-18); BUN/CREATININE RATIO 27.4 (6.6-38.0); CALCIUM 8.8 MG/DL (8.5-10.1); CHLORIDE 97 MMOL/L (99-107); CREATININE 1.46 MG/DL (0.40-0.90); GLUCOSE 113 MG/DL (70-104); SODIUM 136 MMOL/L (135-145); TOTAL CARBON DIOXIDE 31.7 MMOL/L (24-32); eGFR 38 ML/MIN
[2017-12-14 10:20] LABS: EOSINOPHILS % (AUTO) 1.2 % (0-6); HEMATOCRIT 29.2 % (35.0-45.0); HEMOGLOBIN 9.3 g/dl (12.0-16.0); LYMPHOCYTES # (AUTO) 0.9 X10'3 (1.1-4.8); MEAN CORPUSCULAR HEMOGLOBIN 23.5 PG (27.0-31.0); MEAN CORPUSCULAR HGB CONC 31.9 % (33.0-36.5); MEAN CORPUSCULAR VOLUME 73.7 FL (78-98); MEAN PLATELET VOLUME 9.6 FL (7.4-10.4); NEUTROPHILS # (AUTO) 7.3 X10'3 (1.8-7.7); NEUTROPHILS % (AUTO) 76.8 % (42-75); PLATELET COUNT 275 X10'3 (140-440); RED BLOOD COUNT 3.96 X10'6 (4.20-5.60); RED CELL DISTRIBUTION WIDTH 24.3 % (11.5-14.5); WHITE BLOOD COUNT 9.4 X10'3 (4.5-11.0)
[2017-12-14] MEDS: HYDROcodone/acetaminophen 5mg/325mg tablet PO PRN (10:27)
[2017-12-14] MEDS: ondansetron/PF 4mg/2ml inj IV PRN ×2 (10:27→17:31)
[2017-12-14 10:47] LABS: BASOPHILS # (AUTO) 0.2 X10'3 (0-0.2)
[2017-12-14] MEDS: potassium Cl 20 mEq SR tablet PO SCH ×3 (11:55→20:32)
[2017-12-14] MEDS: heparin, porcine 5000 units/ml vial SQ SCH ×2 (11:55→19:51)
[2017-12-14] MEDS: clotrimazole 1% vaginal cream 45gm VG SCH ×2 (11:56→19:53)
[2017-12-14] MEDS: HYDROcodone/acetaminophen 10/325mg tab PO SCH ×3 (12:00→19:52)
[2017-12-14] MEDS ORDERED: furosemide 10 MG/1 ML 10ml inj IV SCH (13:00)
[2017-12-14] MEDS: insulin glargine (Lantus) pen - multi-dose SQ SCH (22:07)
[2017-12-15] VITALS (7 sets, daily range): BP systolic 76–121; BP diastolic 38–69
[2017-12-15] MEDS: HYDROcodone/acetaminophen 10/325mg tab PO SCH ×7 (03:13→20:19)
[2017-12-15] MEDS: LORazepam 0.5 MG tablet PO SCH ×4 (03:14→20:00)
[2017-12-15] MEDS: albuterol 2.5 MG/3 ML nebule NEB SCH ×6 (03:14→23:14)
[2017-12-15] MEDS: K and/or MAG REPLACEMENT MC SCH (08:00)
[2017-12-15] MEDS: lisinopril 10 MG tablet PO SCH (08:00)
[2017-12-15] MEDS: pantoprazole 40mg Tablet.DR PO SCH (10:06)
[2017-12-15] MEDS: montelukast 10mg tablet PO SCH (10:06)
[2017-12-15] MEDS: FLUoxetine 20mg capsule PO SCH (10:06)
[2017-12-15] MEDS: heparin, porcine 5000 units/ml vial SQ SCH ×2 (10:07→20:19)
[2017-12-15] MEDS: levoTHYROXINE 25mcg tablet PO SCH (10:07)
[2017-12-15] MEDS: clotrimazole 1% vaginal cream 45gm VG SCH ×2 (10:08→20:19)
[2017-12-15] MEDS: lactobacillus rhamnosus 10,000 MMU CELLS/CAPSULE PO SCH ×2 (10:09→20:19)
[2017-12-15] MEDS: potassium Cl 20 mEq SR tablet PO SCH ×3 (10:09→20:19)
[2017-12-15] MEDS: morphine 2 MG/ML inj. syringe IV PRN ×2 (10:09→14:57)
[2017-12-15] MEDS: furosemide 10 MG/1 ML 10ml inj IV SCH ×3 (10:11→18:01)
[2017-12-15] MEDS: DOBUTamine-DoBUTrex 500mg/D5W 250 ML IV SCH (10:49)
[2017-12-15 11:04] LABS: ALBUMIN 3.5 G/DL (3.4-5.0); ANION GAP 5 (8-16); BLOOD UREA NITROGEN 48 MG/DL (7-18); BUN/CREATININE RATIO 25.7 (6.6-38.0); CALCIUM 9.3 MG/DL (8.5-10.1); CHLORIDE 97 MMOL/L (99-107); CREATININE 1.87 MG/DL (0.40-0.90); GLUCOSE 117 MG/DL (70-104); POTASSIUM 4.8 MMOL/L (3.5-5.1); SODIUM 136 MMOL/L (135-145); TOTAL CARBON DIOXIDE 34.4 MMOL/L (24-32); eGFR 29 ML/MIN
[2017-12-15] MEDS: HYDROcodone/acetaminophen 5mg/325mg tablet PO PRN (12:34)
[2017-12-15] MEDS: insulin glargine (Lantus) pen - multi-dose SQ SCH (21:00)
[2017-12-16] VITALS (12 sets, daily range): BP systolic 93–132; BP diastolic 45–85
[2017-12-16] MEDS: HYDROcodone/acetaminophen 10/325mg tab PO SCH ×4 (00:46→12:00)
[2017-12-16] MEDS: LORazepam 0.5 MG tablet PO SCH ×2 (02:09→08:26)
[2017-12-16] MEDS: albuterol 2.5 MG/3 ML nebule NEB SCH ×3 (02:41→11:35)
[2017-12-16 06:15] LABS: ALBUMIN 3.7 G/DL (3.4-5.0); ANION GAP 5 (8-16); BLOOD UREA NITROGEN 46 MG/DL (7-18); BUN/CREATININE RATIO 32.6 (6.6-38.0); CHLORIDE 98 MMOL/L (99-107); CREATININE 1.41 MG/DL (0.40-0.90); GLUCOSE 98 MG/DL (70-104); POTASSIUM 4.9 MMOL/L (3.5-5.1); SODIUM 137 MMOL/L (135-145); TOTAL CARBON DIOXIDE 34.2 MMOL/L (24-32); eGFR 40 ML/MIN
[2017-12-16] MEDS: DOBUTamine-DoBUTrex 500mg/D5W 250 ML IV SCH (06:30)
[2017-12-16] MEDS: pantoprazole 40mg Tablet.DR PO SCH (06:33)
[2017-12-16] MEDS: levoTHYROXINE 25mcg tablet PO SCH (06:33)
[2017-12-16] MEDS: furosemide 10 MG/1 ML 10ml inj IV SCH ×2 (08:15→13:56)
[2017-12-16] MEDS: FLUoxetine 20mg capsule PO SCH (08:22)
[2017-12-16] MEDS: montelukast 10mg tablet PO SCH (08:29)
[2017-12-16] MEDS: lactobacillus rhamnosus 10,000 MMU CELLS/CAPSULE PO SCH (08:29)
[2017-12-16] MEDS: potassium Cl 20 mEq SR tablet PO SCH ×2 (08:29→13:56)
[2017-12-16] MEDS: heparin, porcine 5000 units/ml vial SQ SCH (08:30)
[2017-12-16] MEDS: K and/or MAG REPLACEMENT MC SCH (08:40)
[2017-12-16] MEDS: lisinopril 10 MG tablet PO SCH (08:40)
[2017-12-16] MEDS: clotrimazole 1% vaginal cream 45gm VG SCH (08:44)
[2017-12-16] MEDS: morphine 2 MG/ML inj. syringe IV PRN (09:30)
== END 2017-12-16 14:20 | DRG 383 ==
LOC: ER 16:12 → ED HOLD 18:30 → PCU 3S 19:36
PROVIDERS: ADMIT Internal Medicine; ATTEND Internal Medicine
PROC: 5A09357 Assistance with Respiratory Ventilation, Less than 24 Consecutive Hours, Continuous Positive Airway Pressure (ICD-10-PCS; principal; 2017-12-03)
PROC: 5A09357 Assistance with Respiratory Ventilation, Less than 24 Consecutive Hours, Continuous Positive Airway Pressure (ICD-10-PCS; 2017-12-06)
PROC: 5A09357 Assistance with Respiratory Ventilation, Less than 24 Consecutive Hours, Continuous Positive Airway Pressure (ICD-10-PCS; 2017-12-10)
DX: L03.311 Cellulitis of abdominal wall (principal); J96.01 Acute respiratory failure with hypoxia; I50.33 Acute on chronic diastolic (congestive) heart failure; I27.20 Pulmonary hypertension, unspecified; N17.9 Acute kidney failure, unspecified; E66.2 Morbid (severe) obesity with alveolar hypoventilation; F33.1 Major depressive disorder, recurrent, moderate; Z68.44 Body mass index [BMI] 60.0-69.9, adult; L03.115 Cellulitis of right lower limb; L03.116 Cellulitis of left lower limb; M54.5 Low back pain; Z60.2 Problems related to living alone; I27.81 Cor pulmonale (chronic); E03.9 Hypothyroidism, unspecified; G89.4 Chronic pain syndrome; E11.9 Type 2 diabetes mellitus without complications; F41.9 Anxiety disorder, unspecified; J44.9 Chronic obstructive pulmonary disease, unspecified; N61.0 Mastitis without abscess; Z87.891 Personal history of nicotine dependence; Z91.19 Patient's noncompliance with other medical treatment and regimen; Z79.899 Other long term (current) drug therapy
CPT/HCPCS: 36415; 36600; 71045; 76937; 80048; 80053; 80061; 80202; 81003; 82803; 82948; 83036; 83605; 83735; 83880; 84484; 85018; 85025; 85610; 85730; 87040; 87070; 87324; 87449; 93005; 93308; 94640; 94660; 94760; 96374; 96375; 97110; 97116; 97161; 97530; 99285; A4649; A6212; J0696; J1250; J1644; J1815; J1940; J2270; J2405; J3370; J3490; J7030; Q9967

== ENCOUNTER 2017-12-24 11:35 | Emergency (ER) | payer MEDICAID ==
[~2017-12-24] VITALS: Ht 157.5 cm; Wt 132.0 kg
[~2017-12-24 11:35] MED LIST changes: -CEPH500C5 PO; -FURO40TA4 PO; -METF500T PO; -MONT10TA24 PO; -PRED10TA PO
[2017-12-24] MEDS ORDERED: vancomycin/NS 1 GM ADD-VANTAGE 250 ML IV ONE (12:20)
[2017-12-24] MEDS ORDERED: piperacillin/tazo 3.375gm/50ml 50 ML IV ONE (12:20)
[2017-12-24 12:45] LABS: BASOPHILS % (AUTO) 0.2 % (0-1); EOSINOPHILS # (AUTO) 0.1 X10'3 (0-0.9); HEMATOCRIT 27.4 % (35.0-45.0); HEMOGLOBIN 8.4 g/dl (12.0-16.0); LYMPHOCYTES # (AUTO) 0.6 X10'3 (1.1-4.8); LYMPHOCYTES % (AUTO) 3.9 % (21-51); MEAN CORPUSCULAR HEMOGLOBIN 23.1 PG (27.0-31.0); MEAN CORPUSCULAR HGB CONC 30.9 % (33.0-36.5); MEAN CORPUSCULAR VOLUME 74.7 FL (78-98); MEAN PLATELET VOLUME 9.6 FL (7.4-10.4); MONOCYTES # (AUTO) 1.4 X10'3 (0-0.9); MONOCYTES % (AUTO) 9.7 % (2-12); NEUTROPHILS # (AUTO) 12.1 X10'3 (1.8-7.7); NEUTROPHILS % (AUTO) 85.2 % (42-75); PLATELET COUNT 283 X10'3 (140-440); RED BLOOD COUNT 3.66 X10'6 (4.20-5.60); RED CELL DISTRIBUTION WIDTH 27.9 % (11.5-14.5); WHITE BLOOD COUNT 14.2 X10'3 (4.5-11.0)
[2017-12-24 13:00] LABS: ALANINE AMINOTRANSFERASE 21 U/L (12-78); ALBUMIN 3.6 G/DL (3.4-5.0); ALBUMIN/GLOBULIN RATIO 0.8 (1.1-1.5); ALKALINE PHOSPHATASE 118 IU/L (46-116); ANION GAP 7 (8-16); ASPARTATE AMINO TRANSFERASE 13 U/L (10-37); BLOOD UREA NITROGEN 36 MG/DL (7-18); BUN/CREATININE RATIO 24.7 (6.6-38.0); CALCIUM 9.2 MG/DL (8.5-10.1); CHLORIDE 91 MMOL/L (99-107); CREATININE 1.46 MG/DL (0.40-0.90); GLUCOSE 127 MG/DL (70-104); POTASSIUM 4.5 MMOL/L (3.5-5.1); SODIUM 132 MMOL/L (135-145); TOTAL CARBON DIOXIDE 33.6 MMOL/L (24-32); TOTAL PROTEIN 7.9 G/DL (6.4-8.2); eGFR 38 ML/MIN
[2017-12-24 13:08] LABS: INR 1.1 INR; PARTIAL THROMBOPLASTIN TIME 30 SECONDS (22-32); PROTHROMBIN TIME 11.2 SECONDS (9.0-12.0)
[2017-12-24 13:22] LABS: ANISOCYTOSIS 3+; HYPOCHROMASIA 1+; PLATELET ESTIMATE NORMAL; TARGET CELLS FEW
[2017-12-24] MEDS ORDERED: HYDROcodone/acetaminophen 10/325mg tab PO ONE (13:55)
[2017-12-24] MEDS ORDERED: CEPH500C2 PO (14:24)
[2017-12-24 15:15] VITALS: BP 108/53
== END 2017-12-24 15:20 | disposition home or self-care (01) ==
LOC: ER 11:36
DX: L03.113 Cellulitis of right upper limb (principal); I80.8 Phlebitis and thrombophlebitis of other sites; E66.9 Obesity, unspecified; I50.9 Heart failure, unspecified; J44.9 Chronic obstructive pulmonary disease, unspecified; E11.9 Type 2 diabetes mellitus without complications; Z79.899 Other long term (current) drug therapy; Z79.4 Long term (current) use of insulin
CPT/HCPCS: 36415; 71045; 80053; 83605; 84145; 85025; 85610; 85730; 87040; 93005; 93971; 99285

== ENCOUNTER 2019-01-24 06:48 | Inpatient (IN) | payer MEDICAID ==
[~2019-01-24] VITALS: Ht 157.5 cm; Wt 146.0 kg
[~2019-01-24 06:48] MED LIST changes: -OMEP20CA10 PO; +OMEP20CA11 PO
[2019-01-24 07:24] LABS: BASOPHILS # (AUTO) 0.1 X10'3 (0-0.2); BASOPHILS % (AUTO) 1.4 % (0-1); EOSINOPHILS # (AUTO) 0.2 X10'3 (0-0.9); EOSINOPHILS % (AUTO) 1.8 % (0-6); HEMOGLOBIN 11.1 g/dl (12.0-16.0); LYMPHOCYTES # (AUTO) 1.3 X10'3 (1.1-4.8); LYMPHOCYTES % (AUTO) 13.4 % (21-51); MEAN CORPUSCULAR HEMOGLOBIN 21.5 PG (27.0-31.0); MEAN CORPUSCULAR VOLUME 71.8 FL (78-98); MEAN PLATELET VOLUME 8.8 FL (7.4-10.4); MONOCYTES # (AUTO) 1.1 X10'3 (0-0.9); MONOCYTES % (AUTO) 11.7 % (2-12); NEUTROPHILS # (AUTO) 6.8 X10'3 (1.8-7.7); NEUTROPHILS % (AUTO) 71.7 % (42-75); PLATELET COUNT 347 X10'3 (140-440); RED BLOOD COUNT 5.16 X10'6 (4.20-5.60); RED CELL DISTRIBUTION WIDTH 21.3 % (11.5-14.5); WHITE BLOOD COUNT 9.4 X10'3 (4.5-11.0)
[2019-01-24] MEDS ORDERED: furosemide 10 MG/1 ML 10ml inj IV ONE (07:30)
[2019-01-24 07:33] LABS: ALANINE AMINOTRANSFERASE 27 U/L (12-78); ALBUMIN 3.2 G/DL (3.4-5.0); ALBUMIN/GLOBULIN RATIO 0.7 (1.1-1.5); ALKALINE PHOSPHATASE 150 IU/L (46-116); ANION GAP 3 (8-16); ASPARTATE AMINO TRANSFERASE 19 U/L (10-37); BILIRUBIN,TOTAL 0.7 MG/DL (0.1-1.0); BLOOD UREA NITROGEN 12 MG/DL (7-18); BUN/CREATININE RATIO 16.2 (6.6-38.0); CALCIUM 8.9 MG/DL (8.5-10.1); CHLORIDE 100 MMOL/L (99-107); CREATININE 0.74 MG/DL (0.40-0.90); GLUCOSE 106 MG/DL (70-104); POTASSIUM 3.5 MMOL/L (3.5-5.1); SODIUM 140 MMOL/L (135-145); TOTAL CARBON DIOXIDE 36.6 MMOL/L (24-32); TOTAL PROTEIN 7.7 G/DL (6.4-8.2); eGFR 83 ML/MIN
[2019-01-24 07:48] LABS: ANISOCYTOSIS 3+; MICROCYTOSIS 1+; PLATELET ESTIMATE NORMAL
[2019-01-24 07:49] LABS: HYPOCHROMASIA 1+; LARGE PLATELETS FEW; POLYCHROMASIA 1+
[2019-01-24 07:50] LABS: STOMATOCYTES 1+
[2019-01-24] MEDS ORDERED: ampicillin/sulbac 3gm/NS 100ml 100 ML IV SCH (08:00)
[2019-01-24] MEDS ORDERED: ampicillin/sulbac 3gm/NS 100ml 100 ML IV ONE (08:00)
--- NOTE | 2019-01-24 09:50 | NUR ---
PT RESTING IN BED, APPEARS SLEEPING. EASE OF BREATHING WITH NO SOB.
[2019-01-24] MEDS ORDERED: bisacodyl 10mg suppository rectal RC PRN (10:10)
[2019-01-24] MEDS ORDERED: magnesium hydroxide 30ml (MOM) UD suspension PO PRN (10:10)
[2019-01-24] MEDS ORDERED: metoclopramide 5 mg/ml inj IV PRN (10:10)
[2019-01-24] MEDS ORDERED: diphenhydrAMINE 50 mg/ml inj IV PRN (10:10)
[2019-01-24] MEDS ORDERED: magnesium Cl slow-release 64mg tablet PO PRN (10:10)
[2019-01-24] MEDS ORDERED: mag hydrox/Alum hydrox/simeth 30ml oral suspension PO PRN (10:10)
[2019-01-24] MEDS ORDERED: magnesium 2GM in 50ml NS 50 ML IV PRN (10:10)
[2019-01-24] MEDS ORDERED: HYDROcodone/acetaminophen 10/325mg tab PO PRN (10:10)
[2019-01-24] MEDS ORDERED: HYDROcodone/acetaminophen 5mg/325mg tablet PO PRN (10:10)
[2019-01-24] MEDS ORDERED: acetaminophen 325mg tablet PO PRN ×2 (10:10→16:20)
[2019-01-24] MEDS ORDERED: diphenhydrAMINE 25mg capsule PO PRN (10:10)
[2019-01-24] MEDS ORDERED: potassium CL 10mEq/100ml bag 100 ML IV PRN ×2 (10:10)
[2019-01-24] MEDS ORDERED: ondansetron/PF 4mg/2ml inj IV PRN (10:10)
[2019-01-24] MEDS ORDERED: magnesium 4gm in 100ml NS 100 ML IV PRN (10:10)
[2019-01-24] MEDS ORDERED: potassium Cl 20 mEq SR tablet PO PRN ×2 (10:10)
--- NOTE | 2019-01-24 10:31 | NUR ---
first attempt to give report. awaiting call back from receiving RN
--- NOTE | 2019-01-24 10:40 | NUR ---
Dr. Vega at the nurses station. He has been informed of the patients DM II history, and her home meds for this disease process. New orders given: A1C to be drawn, Carb Control Diet, Hyper/hypoglcemia protocol to be started. Will inform the primary RN, Suzi. Orders to be initiated when the patient arrives on the floor from the ED.
[2019-01-24 10:51] LABS: MAGNESIUM 2.1 MG/DL (1.5-2.4); PHOSPHORUS 3.3 MG/DL (2.3-4.5)
--- NOTE | 2019-01-24 11:00 | NUR ---
Patient in room PCU 3011. I have received report from LALITHA Hernandez and had the opportunity to ask questions and assume patient care.
[2019-01-24 11:10] VITALS: BP 148/92
--- NOTE | 2019-01-24 11:10 | NUR ---
Pt arrived on unit. Will assess and monitor.
[2019-01-24] MEDS ORDERED: MESSAGE TO PHARMACY PO ONE (11:50)
[2019-01-24] MEDS ORDERED: dextrose ORAL solution 15 GM/59 ML bottle PO PRN ×2 (11:50)
[2019-01-24] MEDS ORDERED: glucagon, human recombinant 1mg kit SUBCUT PRN (11:50)
[2019-01-24] MEDS ORDERED: insulin Lispro (HumaLOG) vial - multi-dose SQ SCH (11:50)
[2019-01-24] MEDS ORDERED: dextrose 50%-water 50ml dispensing syringe IV PRN ×2 (11:50)
[2019-01-24] MEDS: acetaminophen 325mg tablet PO PRN ×2 (12:42→18:48)
--- NOTE | 2019-01-24 13:16 | NUR ---
Sent to Dr Vega PAGER ID: [phone] MESSAGE: RE: Gerardo, Liss [phone]. Pt reports pain 09/14. Does not want opioids, Tylenol not helping much. She is also experiencing high anxiety. - Suzi [phone]
[2019-01-24] MEDS ORDERED: GABA-530 PO (14:46)
[2019-01-24] MEDS ORDERED: FLU VACC QS2019-20 36MOS UP/PF 60 MCG/0.5 ML SYRINGE IMVAC ONE (15:20)
[2019-01-24 15:35] VITALS: BP 117/74
[2019-01-24 18:00] VITALS: BP 135/90
--- NOTE | 2019-01-24 18:30 | NUR ---
Patient in room PCU 3011. I have received report from LALITHA Archer and had the opportunity to ask questions and assume patient care.
--- NOTE | 2019-01-24 18:31 | NUR ---
Problems reprioritized. Patient report given, questions answered & plan of care reviewed with LALITHA Rodriguez. Pt sitting in chair at bedside.
[2019-01-24] MEDS ORDERED: furosemide 40mg/4ml inj IV SCH (20:00)
[2019-01-24] MEDS: insulin glargine (Lantus) pen - multi-dose SQ SCH (21:00)
[2019-01-24] MEDS: furosemide 40mg/4ml inj IV SCH ×2 (21:00→21:43)
[2019-01-24 22:00] VITALS: BP 125/85
[2019-01-24] MEDS: morphine 2 MG/ML inj. syringe IV PRN (23:45)
[2019-01-25 02:00] VITALS: BP 132/84
[2019-01-25 06:00] VITALS: BP 112/60
[2019-01-25 06:16] LABS: HEMATOCRIT 37.3 % (35.0-45.0); HEMOGLOBIN 11.1 g/dl (12.0-16.0); MEAN CORPUSCULAR HEMOGLOBIN 21.4 PG (27.0-31.0); MEAN CORPUSCULAR HGB CONC 29.8 g/dL (33.0-36.5); MEAN PLATELET VOLUME 9.2 FL (7.4-10.4); PLATELET COUNT 322 X10'3 (140-440); RED BLOOD COUNT 5.18 X10'6 (4.20-5.60); WHITE BLOOD COUNT 7.7 X10'3 (4.5-11.0)
--- NOTE | 2019-01-25 06:25 | NUR ---
Problems reprioritized. Patient report given, questions answered & plan of care reviewed with LALITHA Machado.
[2019-01-25 06:29] LABS: ALBUMIN 3.2 G/DL (3.4-5.0); ANION GAP 4 (8-16); BLOOD UREA NITROGEN 15 MG/DL (7-18); BUN/CREATININE RATIO 20.5 (6.6-38.0); CALCIUM 9.6 MG/DL (8.5-10.1); CHLORIDE 99 MMOL/L (99-107); CHOLESTEROL 131 MG/DL (0-200); CREATININE 0.73 MG/DL (0.40-0.90); GLUCOSE 94 MG/DL (70-104); HDL CHOLESTEROL 22 MG/DL (35-60); LDL CHOLESTEROL 94 MG/DL (50-100); PHOSPHORUS 4.2 MG/DL (2.3-4.5); SODIUM 144 MMOL/L (135-145); TRIGLYCERIDES 95 MG/DL (20-135); eGFR 84 ML/MIN
[2019-01-25 06:31] LABS: TOTAL CARBON DIOXIDE 40.6 MMOL/L (24-32)
--- NOTE | 2019-01-25 06:47 | NUR ---
Paged Dr Mantilla PAGER ID: [phone] MESSAGE: Re: [phone] Liss Carrillo. Pt has a critical C02 of 40.6. Thanks Jeannette Medel [phone]
[2019-01-25] MEDS: morphine 2 MG/ML inj. syringe IV PRN ×3 (07:20→23:44)
[2019-01-25] MEDS: furosemide 40mg/4ml inj IV SCH ×3 (07:20→20:25)
[2019-01-25] MEDS: levoTHYROXINE 25mcg tablet PO SCH (07:21)
[2019-01-25] MEDS: gabapentin 100mg capsule PO SCH (07:21)
[2019-01-25] MEDS: pantoprazole 40mg Tablet.DR PO SCH (07:21)
[2019-01-25] MEDS: CefTRIAXone/D5W-Rocephin 1gm 50 ML IV SCH (07:21)
[2019-01-25] MEDS: lisinopril 10 MG tablet PO SCH (07:22)
[2019-01-25] MEDS: enoxaparin 40mg/0.4ml syringe SUBCUT SCH (07:23)
[2019-01-25] MEDS: K and/or MAG REPLACEMENT MC SCH (08:00)
[2019-01-25 11:00] VITALS: BP 125/61
--- NOTE | 2019-01-25 11:39 | NUR ---
DM consult: Pt with A1c 7.1 seen at bedside. Pt reports significant pain during visit. Written DM education with referral to outpatient DM class and RD contact information left at bedside. Pt endorses a good appetite and denies food allergies or difficulty chewing/swallowing. Pt reports LBM a couple days ago and agrees to power pudding at lunch today, d/w dietary. Will continue to follow. Addendum: 01/25/19 at [address] Amended: Links added.
[2019-01-25 15:00] VITALS: BP 123/90
--- NOTE | 2019-01-25 18:25 | NUR ---
Patient in room PCU 3011. I have received report from Jeannette Moreira RN and had the opportunity to ask questions and assume patient care. Checked on patient, she is in pain and feeling anxious. Will administer morphine and continue to monitor.
--- NOTE | 2019-01-25 18:36 | NUR ---
Problems reprioritized. Patient report given, questions answered & plan of care reviewed with Estrellita DOTY. All patient's needs met at this time.
[2019-01-25 19:00] VITALS: BP 120/84
[2019-01-25] MEDS: temazepam 15mg capsule PO PRN (20:25)
[2019-01-25] MEDS: lactobacillus rhamnosus 10,000 MMU CELLS/CAPSULE PO SCH (20:25)
[2019-01-25] MEDS: insulin glargine (Lantus) pen - multi-dose SQ SCH (21:00)
[2019-01-25 23:00] VITALS: BP 120/82
[2019-01-26] MEDS: morphine 2 MG/ML inj. syringe IV PRN ×3 (03:53→19:18)
[2019-01-26 06:00] VITALS: BP 148/91
[2019-01-26 06:05] LABS: HEMOGLOBIN 11.9 g/dl (12.0-16.0); MEAN CORPUSCULAR HEMOGLOBIN 21.3 PG (27.0-31.0); MEAN CORPUSCULAR HGB CONC 30.4 g/dL (33.0-36.5); MEAN CORPUSCULAR VOLUME 70.1 FL (78-98); PLATELET COUNT 320 X10'3 (140-440); RED BLOOD COUNT 5.57 X10'6 (4.20-5.60); WHITE BLOOD COUNT 8.8 X10'3 (4.5-11.0)
--- NOTE | 2019-01-26 06:17 | NUR ---
Patient in room PCU 3011. I have received report from Estrellita DOTY and had the opportunity to ask questions and assume patient care. All patient's needs met at this time.
--- NOTE | 2019-01-26 06:19 | NUR ---
Problems reprioritized. Patient report given, questions answered & plan of care reviewed with Jeannette DOTY.
[2019-01-26 07:02] LABS: ALBUMIN 3.3 G/DL (3.4-5.0); ANION GAP 7 (8-16); BLOOD UREA NITROGEN 16 MG/DL (7-18); BUN/CREATININE RATIO 21.9 (6.6-38.0); CALCIUM 9.4 MG/DL (8.5-10.1); CHLORIDE 97 MMOL/L (99-107); CREATININE 0.73 MG/DL (0.40-0.90); GLUCOSE 96 MG/DL (70-104); MAGNESIUM 2.2 MG/DL (1.5-2.4); POTASSIUM 4.1 MMOL/L (3.5-5.1); SODIUM 140 MMOL/L (135-145); TOTAL CARBON DIOXIDE 36.3 MMOL/L (24-32); eGFR 84 ML/MIN
--- NOTE | 2019-01-26 07:12 | NUR ---
Paged the PICC nurse Re: Liss Carrillo [id number]. Can you put an IV in please. NOC tried a couple of times and wasn't successful. Thanks
[2019-01-26] MEDS: levoTHYROXINE 25mcg tablet PO SCH (07:13)
[2019-01-26] MEDS: lactobacillus rhamnosus 10,000 MMU CELLS/CAPSULE PO SCH ×2 (07:13→20:00)
[2019-01-26] MEDS: pantoprazole 40mg Tablet.DR PO SCH (07:13)
[2019-01-26] MEDS: gabapentin 100mg capsule PO SCH (07:13)
[2019-01-26] MEDS: lisinopril 10 MG tablet PO SCH (07:14)
[2019-01-26] MEDS: enoxaparin 40mg/0.4ml syringe SUBCUT SCH (07:14)
[2019-01-26] MEDS: furosemide 40mg/4ml inj IV SCH ×3 (07:14→21:26)
[2019-01-26] MEDS: CefTRIAXone/D5W-Rocephin 1gm 50 ML IV SCH (07:15)
[2019-01-26] MEDS: K and/or MAG REPLACEMENT MC SCH (08:00)
[2019-01-26 11:00] VITALS: BP 109/71
[2019-01-26 15:00] VITALS: BP 128/66
--- NOTE | 2019-01-26 18:15 | NUR ---
Patient in room PCU 3011. I have received report from Jeannette DOTY and had the opportunity to ask questions and assume patient care. Patient is sleeping in bed, will continue to monitor.
--- NOTE | 2019-01-26 18:25 | NUR ---
Problems reprioritized. Patient report given, questions answered & plan of care reviewed with Estrellita DOTY. All patient's needs met at this time.
[2019-01-26 19:00] VITALS: BP 140/88
[2019-01-26] MEDS: insulin glargine (Lantus) pen - multi-dose SQ SCH (21:00)
[2019-01-26] MEDS: temazepam 15mg capsule PO PRN (21:26)
[2019-01-26 23:00] VITALS: BP 152/94
[2019-01-27] MEDS: morphine 2 MG/ML inj. syringe IV PRN ×3 (02:35→20:39)
[2019-01-27 03:00] VITALS: BP 139/90
[2019-01-27 05:38] LABS: HEMATOCRIT 38.3 % (35.0-45.0); HEMOGLOBIN 11.7 g/dl (12.0-16.0); MEAN CORPUSCULAR HEMOGLOBIN 21.6 PG (27.0-31.0); MEAN CORPUSCULAR HGB CONC 30.5 g/dL (33.0-36.5); MEAN CORPUSCULAR VOLUME 70.8 FL (78-98); MEAN PLATELET VOLUME 9.1 FL (7.4-10.4); PLATELET COUNT 327 X10'3 (140-440); RED BLOOD COUNT 5.41 X10'6 (4.20-5.60); WHITE BLOOD COUNT 8.2 X10'3 (4.5-11.0)
[2019-01-27 05:50] LABS: ALBUMIN 3.2 G/DL (3.4-5.0); ANION GAP 3 (8-16); BLOOD UREA NITROGEN 14 MG/DL (7-18); BUN/CREATININE RATIO 17.5 (6.6-38.0); CALCIUM 9.1 MG/DL (8.5-10.1); CHLORIDE 95 MMOL/L (99-107); GLUCOSE 94 MG/DL (70-104); MAGNESIUM 2.1 MG/DL (1.5-2.4); PHOSPHORUS 4.1 MG/DL (2.3-4.5); SODIUM 139 MMOL/L (135-145); eGFR 76 ML/MIN
[2019-01-27 06:00] VITALS: BP 132/71
--- NOTE | 2019-01-27 06:13 | NUR ---
Patient in room PCU 3011. I have received report from Estrellita DOTY and had the opportunity to ask questions and assume patient care.
[2019-01-27 06:16] LABS: TOTAL CARBON DIOXIDE 40.6 MMOL/L (24-32)
--- NOTE | 2019-01-27 06:22 | NUR ---
Paged Dr. Allen PAGER ID: [phone] MESSAGE: Estrellita [facility] [phone], Liss Carrillo [phone]. Patient has critical CO2 of 40.6. Yesterday's CO2 was 36.3. Dr. Allen would like me to pass this information to the daytime nurse so she can pass it along to the daytime hospitalist.
--- NOTE | 2019-01-27 06:42 | NUR ---
Problems reprioritized. Patient report given, questions answered & plan of care reviewed with Preeti DOTY.
--- NOTE | 2019-01-27 06:42 | NUR ---
Patient in room PCU 3011. I have received report from Estrellita DOTY and had the opportunity to ask questions and assume patient care.
[2019-01-27] MEDS: K and/or MAG REPLACEMENT MC SCH (07:25)
[2019-01-27] MEDS: levoTHYROXINE 25mcg tablet PO SCH (07:30)
[2019-01-27] MEDS: CefTRIAXone/D5W-Rocephin 1gm 50 ML IV SCH (08:30)
[2019-01-27] MEDS: furosemide 40mg/4ml inj IV SCH ×3 (08:32→20:39)
[2019-01-27] MEDS: lactobacillus rhamnosus 10,000 MMU CELLS/CAPSULE PO SCH ×2 (08:32→20:39)
[2019-01-27] MEDS: gabapentin 100mg capsule PO SCH (08:33)
[2019-01-27] MEDS: lisinopril 10 MG tablet PO SCH (08:33)
[2019-01-27] MEDS: pantoprazole 40mg Tablet.DR PO SCH (08:33)
[2019-01-27] MEDS: enoxaparin 40mg/0.4ml syringe SUBCUT SCH (08:34)
--- NOTE | 2019-01-27 10:01 | NUR ---
Patient in room PCU 3011. I have received report from LALITHA Álvarez and had the opportunity to ask questions and assume patient care.
[2019-01-27 11:00] VITALS: BP 118/50
[2019-01-27] MEDS ORDERED: ipratropium/albuterol 3ml nebule NEB PRN (16:40)
[2019-01-27] MEDS: cetirizine 10mg tablet PO SCH (17:24)
[2019-01-27] MEDS: metolazone 2.5mg tablet PO SCH (17:24)
--- NOTE | 2019-01-27 18:15 | NUR ---
Patient in room PCU 3011. I have received report from Evan DOTY and had the opportunity to ask questions and assume patient care. Checked on patient, she is sound asleep. Will continue to monitor.
--- NOTE | 2019-01-27 18:18 | NUR ---
Problems reprioritized. Patient report given, questions answered & plan of care reviewed with LALITHA Haro.
[2019-01-27 19:00] VITALS: BP 128/44
[2019-01-27] MEDS: ipratropium/albuterol 3ml nebule NEB SCH ×2 (19:50→23:15)
[2019-01-27] MEDS: insulin glargine (Lantus) pen - multi-dose SQ SCH (20:42)
[2019-01-27 23:00] VITALS: BP 116/54
[2019-01-28] MEDS: morphine 2 MG/ML inj. syringe IV PRN ×4 (01:28→21:01)
[2019-01-28 06:00] VITALS: BP 153/71
--- NOTE | 2019-01-28 06:00 | NUR ---
Received critical venous CO2 from lab, notified primary LALITHA Gordon.
[2019-01-28 06:25] LABS: GLUCOSE 108 MG/DL (70-104)
[2019-01-28 06:26] LABS: ALBUMIN 3.5 G/DL (3.4-5.0); ANION GAP 4 (8-16); BLOOD UREA NITROGEN 20 MG/DL (7-18); CALCIUM 9.7 MG/DL (8.5-10.1); CHLORIDE 93 MMOL/L (99-107); CREATININE 0.87 MG/DL (0.40-0.90); MAGNESIUM 2.3 MG/DL (1.5-2.4); SODIUM 138 MMOL/L (135-145); eGFR 69 ML/MIN
--- NOTE | 2019-01-28 06:29 | NUR ---
Problems reprioritized. Patient report given, questions answered & plan of care reviewed with Evan DOTY.
[2019-01-28 06:35] LABS: HEMATOCRIT 38.4 % (35.0-45.0); HEMOGLOBIN 11.7 g/dl (12.0-16.0); MEAN CORPUSCULAR HEMOGLOBIN 21.4 PG (27.0-31.0); MEAN CORPUSCULAR HGB CONC 30.5 g/dL (33.0-36.5); MEAN CORPUSCULAR VOLUME 70.2 FL (78-98); MEAN PLATELET VOLUME 9.3 FL (7.4-10.4); PLATELET COUNT 331 X10'3 (140-440); RED BLOOD COUNT 5.47 X10'6 (4.20-5.60); RED CELL DISTRIBUTION WIDTH 20.9 % (11.5-14.5)
[2019-01-28 06:38] LABS: TOTAL CARBON DIOXIDE 41.3 MMOL/L (24-32)
--- NOTE | 2019-01-28 06:42 | NUR ---
PAGER ID: [phone] MESSAGE: [phone] Liss Carrillo: CO2 41.3 LALITHA Gordon [phone] Addendum: 01/28/19 at 0647 by Evan Novoa RN Response from Dr Allen, "decrease Lasix dose to BID."
[2019-01-28] MEDS: K and/or MAG REPLACEMENT MC SCH (07:06)
[2019-01-28] MEDS: ipratropium/albuterol 3ml nebule NEB SCH ×5 (08:14→23:25)
--- NOTE | 2019-01-28 08:42 | NUR ---
Problems reprioritized. Patient report given, questions answered & plan of care reviewed with LALITHA Qureshi.
[2019-01-28] MEDS: CefTRIAXone/D5W-Rocephin 1gm 50 ML IV SCH (08:57)
[2019-01-28] MEDS: lactobacillus rhamnosus 10,000 MMU CELLS/CAPSULE PO SCH ×2 (09:07→21:00)
[2019-01-28] MEDS: pantoprazole 40mg Tablet.DR PO SCH (09:07)
[2019-01-28] MEDS: cetirizine 10mg tablet PO SCH (09:07)
[2019-01-28] MEDS: levoTHYROXINE 25mcg tablet PO SCH (09:08)
[2019-01-28] MEDS: gabapentin 100mg capsule PO SCH (09:08)
[2019-01-28] MEDS: lisinopril 10 MG tablet PO SCH (09:08)
[2019-01-28] MEDS: enoxaparin 40mg/0.4ml syringe SUBCUT SCH (09:09)
[2019-01-28] MEDS: furosemide 40mg/4ml inj IV SCH ×2 (09:20→20:00)
[2019-01-28] MEDS: acetaminophen 325mg tablet PO PRN ×2 (10:31→21:01)
[2019-01-28] MEDS: acetaZOLAMIDE 250mg tablet PO SCH ×2 (10:31→21:00)
[2019-01-28] MEDS: metolazone 2.5mg tablet PO SCH (10:32)
[2019-01-28 11:00] VITALS: BP 150/84
--- NOTE | 2019-01-28 11:00 | NUR ---
Initial: Pt admit with CHF. Pt on a heart healthy CHO controlled diet with 2L fluid restriction documented with 75-100% PO intake likely meeting nutrient needs. LBM 01/22. Pt received first dose of PRN MoM last night. Skin intact. No nutrition diagnosis at this time. Will continue to follow. Recommendations: 1) Continue heart healthy CHO controlled diet with 2L fluid restrict per MD 2) Monitor need for additional protein for satiety 3) Routine bowel care; monitor need for additional 4) Wt per rx Addendum: 01/28/19 at [address] Amended: Links added.
[2019-01-28] MEDS: LORazepam 1 MG tablet PO PRN ×2 (11:52→21:01)
--- NOTE | 2019-01-28 15:38 | NUR ---
[id number] MESSAGE: Liss Carrillo No BM x 6 days. MOM was ineffective. May we order Mag Citrate followed by suppository? LALITHA Singer
[2019-01-28] MEDS ORDERED: magnesium citrate 296ml oral solution PO ONE (15:45)
[2019-01-28] MEDS ORDERED: bisacodyl 10mg suppository rectal RC STA (15:46)
--- NOTE | 2019-01-28 18:19 | NUR ---
Problems reprioritized. Patient report given, questions answered & plan of care reviewed with LALITHA Monsivais.
[2019-01-28 19:00] VITALS: BP 98/54
[2019-01-28] MEDS: insulin glargine (Lantus) pen - multi-dose SQ SCH (20:58)
[2019-01-28 23:00] VITALS: BP 111/66
[2019-01-29 03:00] VITALS: BP 120/79
[2019-01-29] MEDS: LORazepam 1 MG tablet PO PRN (03:25)
[2019-01-29] MEDS: morphine 2 MG/ML inj. syringe IV PRN ×4 (03:26→20:17)
[2019-01-29 05:27] LABS: HEMATOCRIT 37.7 % (35.0-45.0); HEMOGLOBIN 11.6 g/dl (12.0-16.0); MEAN CORPUSCULAR HEMOGLOBIN 21.5 PG (27.0-31.0); MEAN CORPUSCULAR HGB CONC 30.7 g/dL (33.0-36.5); MEAN CORPUSCULAR VOLUME 70.1 FL (78-98); MEAN PLATELET VOLUME 9.5 FL (7.4-10.4); PLATELET COUNT 328 X10'3 (140-440); RED BLOOD COUNT 5.37 X10'6 (4.20-5.60); WHITE BLOOD COUNT 8.4 X10'3 (4.5-11.0)
[2019-01-29 05:45] LABS: ALBUMIN 3.3 G/DL (3.4-5.0); ANION GAP 5 (8-16); BLOOD UREA NITROGEN 29 MG/DL (7-18); BUN/CREATININE RATIO 28.2 (6.6-38.0); CALCIUM 9.3 MG/DL (8.5-10.1); CHLORIDE 91 MMOL/L (99-107); CREATININE 1.03 MG/DL (0.40-0.90); GLUCOSE 113 MG/DL (70-104); MAGNESIUM 2.5 MG/DL (1.5-2.4); PHOSPHORUS 5.5 MG/DL (2.3-4.5); POTASSIUM 3.9 MMOL/L (3.5-5.1); SODIUM 134 MMOL/L (135-145); TOTAL CARBON DIOXIDE 37.6 MMOL/L (24-32); eGFR 57 ML/MIN
[2019-01-29 06:00] VITALS: BP 97/57
--- NOTE | 2019-01-29 06:19 | NUR ---
Patient in room PCU 3011. I have received report from Yodit DOTY and had the opportunity to ask questions and assume patient care.
--- NOTE | 2019-01-29 06:36 | NUR ---
Patient in room PCU 3011. I have received report from Yodit DOTY and had the opportunity to ask questions and assume patient care.
[2019-01-29] MEDS: ipratropium/albuterol 3ml nebule NEB SCH ×5 (07:16→23:00)
[2019-01-29] MEDS: CefTRIAXone/D5W-Rocephin 1gm 50 ML IV SCH (07:30)
[2019-01-29] MEDS: enoxaparin 40mg/0.4ml syringe SUBCUT SCH (07:31)
[2019-01-29] MEDS: lactobacillus rhamnosus 10,000 MMU CELLS/CAPSULE PO SCH ×2 (07:31→20:29)
[2019-01-29] MEDS: acetaZOLAMIDE 250mg tablet PO SCH ×2 (07:32→20:28)
[2019-01-29] MEDS: levoTHYROXINE 25mcg tablet PO SCH (07:32)
[2019-01-29] MEDS: pantoprazole 40mg Tablet.DR PO SCH (07:32)
[2019-01-29] MEDS: cetirizine 10mg tablet PO SCH (07:32)
[2019-01-29] MEDS: gabapentin 100mg capsule PO SCH (07:33)
[2019-01-29] MEDS: furosemide 40mg/4ml inj IV SCH ×3 (07:33→20:17)
[2019-01-29] MEDS: lisinopril 10 MG tablet PO SCH (07:36)
[2019-01-29] MEDS: K and/or MAG REPLACEMENT MC SCH (08:00)
--- NOTE | 2019-01-29 11:00 | NUR ---
Pt is nauseas and refused 1100 vital signs. Will continue to monitor and intevene. Frequent rounding is being performed.
[2019-01-29] MEDS: metolazone 2.5mg tablet PO SCH (11:12)
--- NOTE | 2019-01-29 11:12 | NUR ---
Patient nauseated, refusing anti-nausea medication. Refused rectal suppository, passing gas at the moment. Per pt, "I want to be left alone". Will continue to monitor.
[2019-01-29] MEDS: LORazepam 1 MG tablet PO SCH ×2 (12:35→20:29)
--- NOTE | 2019-01-29 12:40 | NUR ---
Pt extremely anxious about her daughter and her pain. States anxiety is a 10/10 and pain is a 8/10. Per pt, "I feel like the kim are really close am i'm hanging on by my nails". Keeps saying, "i'm worried about my daughter, I want to know where my daughter is". Stayed with the patient, educated on calming techniques and pursed lip breathing. Gave ativan x1 and morphine x1, will continue to monitor
[2019-01-29 15:00] VITALS: BP 113/74
--- NOTE | 2019-01-29 17:48 | NUR ---
[place] documentation: I have reviewed and agree with interventions, assessments performed and documented by Ernestine DOTY. [place] Medication Administration: For this medication-pass time frame, medication were reviewed, dispensed, administered and documented per hospital policy by Ernestine DOTY.
--- NOTE | 2019-01-29 18:14 | NUR ---
Problems reprioritized. Patient report given, questions answered & plan of care reviewed with Han RN.
--- NOTE | 2019-01-29 18:14 | NUR ---
Problems reprioritized. Patient report given, questions answered & plan of care reviewed with Han RN.
--- NOTE | 2019-01-29 18:30 | NUR ---
Patient in room PCU 3011. I have received report from Jessica Pelletier RN and had the opportunity to ask questions and assume patient care.
[2019-01-29 19:00] VITALS: BP 113/68
[2019-01-29] MEDS: polyethylene glycol 3350 17gm powd pack PO SCH ×2 (20:29→21:00)
[2019-01-29] MEDS: insulin glargine (Lantus) pen - multi-dose SQ SCH (21:00)
[2019-01-29 23:00] VITALS: BP 144/79
[2019-01-30] MEDS: morphine 2 MG/ML inj. syringe IV PRN ×3 (01:31→11:20)
[2019-01-30 03:00] VITALS: BP 116/75
--- NOTE | 2019-01-30 06:19 | NUR ---
Problems reprioritized. Patient report given, questions answered & plan of care reviewed with Jessica Pelletier RN.
--- NOTE | 2019-01-30 06:19 | NUR ---
Patient in room PCU 3011. I have received report from Han RN and had the opportunity to ask questions and assume patient care.
--- NOTE | 2019-01-30 06:28 | NUR ---
Patient is receiving abx and lasix which require lab monitoring. CBC and BMP ordered for monitoring.
[2019-01-30 06:43] LABS: MAGNESIUM 2.6 MG/DL (1.5-2.4)
--- NOTE | 2019-01-30 06:50 | NUR ---
Refused 0600 vital signs, will continue to educate on the need for obtaining frequent vital signs. Will take vitals before medication administration.
[2019-01-30 07:00] VITALS: BP 125/74
[2019-01-30] MEDS: CefTRIAXone/D5W-Rocephin 1gm 50 ML IV SCH (07:11)
[2019-01-30] MEDS: gabapentin 100mg capsule PO SCH (07:13)
[2019-01-30] MEDS: acetaZOLAMIDE 250mg tablet PO SCH (07:13)
[2019-01-30] MEDS: furosemide 40mg/4ml inj IV SCH (07:13)
[2019-01-30] MEDS: enoxaparin 40mg/0.4ml syringe SUBCUT SCH (07:13)
[2019-01-30] MEDS: metolazone 2.5mg tablet PO SCH (07:13)
[2019-01-30] MEDS: levoTHYROXINE 25mcg tablet PO SCH (07:14)
[2019-01-30] MEDS: LORazepam 1 MG tablet PO SCH (07:14)
[2019-01-30] MEDS: lisinopril 10 MG tablet PO SCH (07:14)
[2019-01-30] MEDS: lactobacillus rhamnosus 10,000 MMU CELLS/CAPSULE PO SCH (07:14)
[2019-01-30] MEDS: pantoprazole 40mg Tablet.DR PO SCH (07:15)
[2019-01-30] MEDS: cetirizine 10mg tablet PO SCH (07:15)
[2019-01-30] MEDS: ipratropium/albuterol 3ml nebule NEB SCH ×2 (07:34→11:03)
[2019-01-30 07:43] LABS: BASOPHILS # (AUTO) 0.2 X10'3 (0-0.2); BASOPHILS % (AUTO) 1.7 % (0-1); EOSINOPHILS # (AUTO) 0.1 X10'3 (0-0.9); EOSINOPHILS % (AUTO) 1.5 % (0-6); HEMATOCRIT 38.1 % (35.0-45.0); HEMOGLOBIN 11.5 g/dl (12.0-16.0); LYMPHOCYTES # (AUTO) 1.3 X10'3 (1.1-4.8); LYMPHOCYTES % (AUTO) 14.8 % (21-51); MEAN CORPUSCULAR HEMOGLOBIN 21.6 PG (27.0-31.0); MEAN CORPUSCULAR HGB CONC 30.3 g/dL (33.0-36.5); MEAN CORPUSCULAR VOLUME 71.3 FL (78-98); MONOCYTES % (AUTO) 11.3 % (2-12); NEUTROPHILS # (AUTO) 6.4 X10'3 (1.8-7.7); NEUTROPHILS % (AUTO) 70.7 % (42-75); PLATELET COUNT 286 X10'3 (140-440); RED BLOOD COUNT 5.34 X10'6 (4.20-5.60); RED CELL DISTRIBUTION WIDTH 21.4 % (11.5-14.5)
[2019-01-30 07:59] LABS: ANISOCYTOSIS 3+; LARGE PLATELETS FEW; MICROCYTOSIS 1+; PLATELET ESTIMATE NORMAL
[2019-01-30 08:00] LABS: ALBUMIN 3.3 G/DL (3.4-5.0); ANION GAP 11 (8-16); BLOOD UREA NITROGEN 41 MG/DL (7-18); CALCIUM 9.2 MG/DL (8.5-10.1); CHLORIDE 92 MMOL/L (99-107); CREATININE 1.17 MG/DL (0.40-0.90); GIANT PLATELET FEW; GLUCOSE 106 MG/DL (70-104); POTASSIUM 4.1 MMOL/L (3.5-5.1); SODIUM 134 MMOL/L (135-145); eGFR 49 ML/MIN
[2019-01-30] MEDS: K and/or MAG REPLACEMENT MC SCH (08:00)
[2019-01-30 08:01] LABS: HYPOGRANULAR PLATELETS FEW; STOMATOCYTES 1+
[2019-01-30 11:00] VITALS: BP 94/45
[2019-01-30] MEDS ORDERED: ATI1T PO (11:05)
[2019-01-30] MEDS ORDERED: CEFD300C3 PO (11:05)
[2019-01-30] MEDS ORDERED: FURO40TA4 PO (11:05)
[2019-01-30] MEDS ORDERED: POTA10TA36 PO (11:05)
[2019-01-30] MEDS ORDERED: HYDR-4353 PO (11:05)
[2019-01-30] MEDS ORDERED: IPRA3AMP9 NEB (11:05)
--- NOTE | 2019-01-30 11:07 | NUR ---
TX FOR 0700 SPO2 WAS 95 % ON 2 LITERS. NOT 78 THAT WAS HR. CHARTING ERROR Addendum: 01/30/19 at 1108 by Charles Davila RT Amended: Links added.
--- NOTE | 2019-01-30 11:44 | NUR ---
Paged Dr. Vega regarding discharge medications. PAGER ID: [phone] MESSAGE: Bill [phone]. We need a triplicate for the [place] discharge medication. We can come pick it up from you, please call Ernestine Connors.
--- NOTE | 2019-01-30 13:35 | NUR ---
pt okay to discharge per MD, discharge instructions reviewed with patient, educated on CHF/Diabetes Survival Skills/LILA, called in new prescriptions to [facility], follow up apt made for the patient at [facility] for WedFeb 06 at 0900, physical prescription for norco sent with the patient, Tele monitor discontinued, PIV taken out, pt off the unit at 1335 in wheelchair accompanied by RN and spouse.
== END 2019-01-30 13:48 | disposition home or self-care (01) | DRG 194 ==
LOC: ER 06:48 → ED HOLD 10:06 → PCU 3S 11:10
PROVIDERS: ADMIT Family Medicine; ATTEND Family Medicine
DX: I11.0 Hypertensive heart disease with heart failure (principal); J96.01 Acute respiratory failure with hypoxia; E03.9 Hypothyroidism, unspecified; I50.43 Acute on chronic combined systolic (congestive) and diastolic (congestive) heart failure; E11.9 Type 2 diabetes mellitus without complications; E78.5 Hyperlipidemia, unspecified; F32.9 Major depressive disorder, single episode, unspecified; F41.9 Anxiety disorder, unspecified; G47.33 Obstructive sleep apnea (adult) (pediatric); J44.9 Chronic obstructive pulmonary disease, unspecified; Z99.81 Dependence on supplemental oxygen; Z79.899 Other long term (current) drug therapy; Z23 Encounter for immunization
CPT/HCPCS: 36415; 71045; 76937; 80048; 80053; 80061; 82948; 83036; 83735; 83880; 84100; 84443; 84484; 85025; 85027; 87081; 93005; 93306; 94640; 94760; 96365; 96375; 97116; 97161; 97530; 99285; G0378; J0295; J0696; J1650; J1815; J1940; J2270; Q2037

== ENCOUNTER 2019-02-04 07:40 | Inpatient (IN) | payer MEDICAID ==
[~2019-02-04] VITALS: Ht 157.5 cm; Wt 136.9 kg
--- NOTE | 2019-02-04 03:36 | NUR ---
pt resting in bed without s&s of distress at this time. Addendum: 02/05/19 at 0338 by Silvina Garcia RN wrong date and time correct pt.
[~2019-02-04 07:40] MED LIST changes: +ATI1T PO; +CEFD300C3 PO; -FERR140T2 PO; -FLUO20CA39 PO; +FURO40TA4 PO; +GABA-530 PO; +IPRA3AMP9 NEB; -LORA0.5T PO; +POTA10TA36 PO; -POTA8TAB8 PO
[2019-02-04] MEDS ORDERED: furosemide 40mg/4ml inj IV ONE (07:45)
[2019-02-04] MEDS ORDERED: LORazepam 2 mg/ml vial IV ONE (07:45)
[2019-02-04 08:15] LABS: BASOPHILS # (AUTO) 0.1 X10'3 (0-0.2); BASOPHILS % (AUTO) 1.1 % (0-1); EOSINOPHILS # (AUTO) 0.1 X10'3 (0-0.9); EOSINOPHILS % (AUTO) 0.9 % (0-6); HEMATOCRIT 36.9 % (35.0-45.0); HEMOGLOBIN 11.3 g/dl (12.0-16.0); LYMPHOCYTES % (AUTO) 11.2 % (21-51); MEAN CORPUSCULAR HGB CONC 30.7 g/dL (33.0-36.5); MEAN CORPUSCULAR VOLUME 71.9 FL (78-98); MEAN PLATELET VOLUME 9.3 FL (7.4-10.4); MONOCYTES # (AUTO) 1.1 X10'3 (0-0.9); MONOCYTES % (AUTO) 11.2 % (2-12); NEUTROPHILS # (AUTO) 7.1 X10'3 (1.8-7.7); NEUTROPHILS % (AUTO) 75.6 % (42-75); PLATELET COUNT 326 X10'3 (140-440); RED BLOOD COUNT 5.13 X10'6 (4.20-5.60); RED CELL DISTRIBUTION WIDTH 22.1 % (11.5-14.5); WHITE BLOOD COUNT 9.4 X10'3 (4.5-11.0)
[2019-02-04 08:32] LABS: ALANINE AMINOTRANSFERASE 23 U/L (12-78); ALBUMIN 3.5 G/DL (3.4-5.0); ALBUMIN/GLOBULIN RATIO 0.7 (1.1-1.5); ALKALINE PHOSPHATASE 184 IU/L (46-116); ANION GAP 7 (8-16); ASPARTATE AMINO TRANSFERASE 17 U/L (10-37); BILIRUBIN,TOTAL 0.7 MG/DL (0.1-1.0); BLOOD UREA NITROGEN 100 MG/DL (7-18); BUN/CREATININE RATIO 50.5 (6.6-38.0); CALCIUM 8.7 MG/DL (8.5-10.1); CHLORIDE 89 MMOL/L (99-107); CREATININE 1.98 MG/DL (0.40-0.90); GLUCOSE 99 MG/DL (70-104); POTASSIUM 4.3 MMOL/L (3.5-5.1); SODIUM 127 MMOL/L (135-145); TOTAL CARBON DIOXIDE 31.2 MMOL/L (24-32); TOTAL PROTEIN 8.4 G/DL (6.4-8.2); eGFR 27 ML/MIN
[2019-02-04 08:48] LABS: ANISOCYTOSIS 3+; HYPOCHROMASIA 1+; MICROCYTOSIS 1+; PLATELET ESTIMATE NORMAL; POLYCHROMASIA 1+
[2019-02-04 08:49] LABS: STOMATOCYTES 1+
[2019-02-04] MEDS ORDERED: normal saline 1000ML IV soln IVB ONE (09:05)
[2019-02-04] MEDS ORDERED: acetaminophen 325mg tablet PO PRN (09:15)
[2019-02-04] MEDS ORDERED: ondansetron/PF 4mg/2ml inj IV PRN (09:15)
[2019-02-04] MEDS ORDERED: FURO40TA4 PO (10:14)
[2019-02-04] MEDS: HYDROcodone/acetaminophen 5mg/325mg tablet PO PRN ×2 (11:13→15:25)
[2019-02-04] MEDS ORDERED: IPRA3AMP31 PO (12:58)
[2019-02-04] MEDS ORDERED: ATI1T PO (13:00)
[2019-02-04] MEDS ORDERED: POTA8TAB57 PO (13:03)
[2019-02-04] MEDS ORDERED: LISI-604 PO (13:03)
[2019-02-04] MEDS ORDERED: CEFD300C21 PO (13:05)
[2019-02-04] MEDS: normal saline 1000ml 1,000 ML IV SCH ×2 (15:26→19:14)
[2019-02-04] MEDS: gabapentin 100mg capsule PO SCH (16:50)
[2019-02-04] MEDS ORDERED: albuterol 2.5 MG/3 ML nebule NEB SCH (17:00)
[2019-02-04] MEDS ORDERED: albuterol 2.5 MG/3 ML nebule NEB PRN (17:02)
--- NOTE | 2019-02-04 18:36 | NUR ---
Patient in room HEBER 347. I have received report from MARIELLA DOTY and had the opportunity to ask questions and assume patient care. Addendum: 02/04/19 at 1836 by Silvina Garcia RN Amended: Links added.
[2019-02-04] MEDS: ipratropium/albuterol 3ml nebule NEB SCH ×2 (19:35→23:40)
[2019-02-04 20:00] VITALS: BP 102/42
--- NOTE | 2019-02-04 20:00 | NUR ---
pt vitals taken without complaints.
[2019-02-04] MEDS ORDERED: temazepam 15mg capsule PO PRN (21:00)
[2019-02-05] VITALS: BP 113/72
[2019-02-05] MEDS: HYDROcodone/acetaminophen 5mg/325mg tablet PO PRN ×5 (00:44→22:11)
[2019-02-05] MEDS: LORazepam 1 MG tablet PO PRN ×3 (00:44→16:45)
--- NOTE | 2019-02-05 00:45 | NUR ---
PT AWOKE C/O PAIN AND CRYING OUT.MEDICATED WITH NORCO AND ATIVAN PO. TELE LEADS REPLACED. ASSISTED BACK INTO BED. ACCUCHECK 118. SHE STATED I JUST WANT TO SLEEP PEE AND EAT.
--- NOTE | 2019-02-05 02:30 | NUR ---
resting eyes closed without changes at this time.
--- NOTE | 2019-02-05 03:40 | NUR ---
Rt with pt for tx pt insistent on sitting on edge of bed and falling asleep during tx. laid back down.
[2019-02-05] MEDS: ipratropium/albuterol 3ml nebule NEB SCH ×6 (03:46→23:26)
--- NOTE | 2019-02-05 05:01 | NUR ---
pt resting without changes on right side flutter valve given earlier.
[2019-02-05] MEDS: normal saline 1000ml 1,000 ML IV SCH ×2 (05:14→12:42)
--- NOTE | 2019-02-05 06:30 | NUR ---
Problems reprioritized. Patient report given, questions answered & plan of care reviewed with Evan Shane. Addendum: 02/05/19 at 0718 by Silvina Garcia RN Amended: Links added.
--- NOTE | 2019-02-05 06:42 | NUR ---
Patient in room HEBER 347. I have received report from LALITHA Cool and had the opportunity to ask questions and assume patient care.
[2019-02-05 06:58] LABS: EOSINOPHILS # (AUTO) 0.1 X10'3 (0-0.9); HEMATOCRIT 36.2 % (35.0-45.0); HEMOGLOBIN 11.1 g/dl (12.0-16.0); MONOCYTES # (AUTO) 1.1 X10'3 (0-0.9)
--- NOTE | 2019-02-05 07:00 | NUR ---
Patient yelling out, "I WANT AN UBER MAINTENANCE TECHNICIAN 3RD SHIFT." Addendum: 02/05/19 at 0702 by Evan Novoa RN Patient called an acquaintance to try and get her an Uber set-up.
[2019-02-05 07:03] LABS: BASOPHILS # (AUTO) 0.1 X10'3 (0-0.2); BASOPHILS % (AUTO) 1.3 % (0-1); EOSINOPHILS % (AUTO) 1.3 % (0-6); LYMPHOCYTES # (AUTO) 1.1 X10'3 (1.1-4.8); LYMPHOCYTES % (AUTO) 14.3 % (21-51); MEAN CORPUSCULAR HEMOGLOBIN 22.2 PG (27.0-31.0); MEAN CORPUSCULAR HGB CONC 30.6 g/dL (33.0-36.5); MEAN CORPUSCULAR VOLUME 72.5 FL (78-98); MEAN PLATELET VOLUME 9.4 FL (7.4-10.4); MONOCYTES % (AUTO) 14.4 % (2-12); NEUTROPHILS # (AUTO) 5.2 X10'3 (1.8-7.7); NEUTROPHILS % (AUTO) 68.7 % (42-75); PLATELET COUNT 283 X10'3 (140-440); RED BLOOD COUNT 4.99 X10'6 (4.20-5.60); RED CELL DISTRIBUTION WIDTH 22.6 % (11.5-14.5); WHITE BLOOD COUNT 7.5 X10'3 (4.5-11.0)
[2019-02-05 07:15] LABS: ALBUMIN 3.4 G/DL (3.4-5.0); ANION GAP 8 (8-16); BLOOD UREA NITROGEN 82 MG/DL (7-18); CALCIUM 8.8 MG/DL (8.5-10.1); CHLORIDE 95 MMOL/L (99-107); GLUCOSE 98 MG/DL (70-104); POTASSIUM 4.6 MMOL/L (3.5-5.1); SODIUM 135 MMOL/L (135-145); TOTAL CARBON DIOXIDE 32.1 MMOL/L (24-32)
[2019-02-05 07:37] LABS: BUN/CREATININE RATIO 67.2 (6.6-38.0); CREATININE 1.22 MG/DL (0.40-0.90); eGFR 47 ML/MIN
[2019-02-05] MEDS: pantoprazole 40mg Tablet.DR PO SCH (07:39)
[2019-02-05] MEDS: gabapentin 100mg capsule PO SCH (07:40)
[2019-02-05] MEDS: levoTHYROXINE 25mcg tablet PO SCH (07:40)
[2019-02-05 07:50] LABS: PLATELET ESTIMATE NORMAL
[2019-02-05 07:51] LABS: ANISOCYTOSIS 3+; MICROCYTOSIS 1+; POLYCHROMASIA FEW; TARGET CELLS FEW
--- NOTE | 2019-02-05 08:06 | NUR ---
Refused 0800 vitals
--- NOTE | 2019-02-05 10:54 | NUR ---
PAGER ID: [phone] MESSAGE: [phone] C/O of SOB. Unsure if Ativan is ineffective for Anxiety or Resp Tx ineffective at helping SOB. LALITHA Gordon Ext [phone]
[2019-02-05 11:00] VITALS: BP 132/109
[2019-02-05] MEDS: enoxaparin 40mg/0.4ml syringe SQ SCH (14:13)
[2019-02-05 18:00] VITALS: BP 107/64
--- NOTE | 2019-02-05 18:14 | NUR ---
Problems reprioritized. Patient report given, questions answered & plan of care reviewed with LALITHA Loza.
[2019-02-05 23:58] VITALS: BP 116/85
[2019-02-06] MEDS: ipratropium/albuterol 3ml nebule NEB SCH ×6 (03:09→23:43)
[2019-02-06] MEDS: HYDROcodone/acetaminophen 5mg/325mg tablet PO PRN ×5 (03:31→21:10)
[2019-02-06] MEDS: LORazepam 1 MG tablet PO PRN ×4 (03:31→20:42)
[2019-02-06 04:19] LABS: ALBUMIN 3.3 G/DL (3.4-5.0); ANION GAP 3 (8-16); BLOOD UREA NITROGEN 36 MG/DL (7-18); BUN/CREATININE RATIO 46.8 (6.6-38.0); CALCIUM 9.2 MG/DL (8.5-10.1); CHLORIDE 98 MMOL/L (99-107); CREATININE 0.77 MG/DL (0.40-0.90); GLUCOSE 103 MG/DL (70-104); POTASSIUM 4.1 MMOL/L (3.5-5.1); SODIUM 137 MMOL/L (135-145); TOTAL CARBON DIOXIDE 36.2 MMOL/L (24-32); eGFR 79 ML/MIN
[2019-02-06 04:25] LABS: BASOPHILS # (AUTO) 0.1 X10'3 (0-0.2); BASOPHILS % (AUTO) 1.3 % (0-1); EOSINOPHILS # (AUTO) 0.1 X10'3 (0-0.9); EOSINOPHILS % (AUTO) 1.7 % (0-6); HEMATOCRIT 34.9 % (35.0-45.0); HEMOGLOBIN 10.9 g/dl (12.0-16.0); LYMPHOCYTES # (AUTO) 1.1 X10'3 (1.1-4.8); MEAN CORPUSCULAR HEMOGLOBIN 22.2 PG (27.0-31.0); MEAN CORPUSCULAR HGB CONC 31.3 g/dL (33.0-36.5); MEAN PLATELET VOLUME 9.1 FL (7.4-10.4); MONOCYTES # (AUTO) 0.9 X10'3 (0-0.9); MONOCYTES % (AUTO) 11.1 % (2-12); NEUTROPHILS # (AUTO) 5.8 X10'3 (1.8-7.7); NEUTROPHILS % (AUTO) 71.9 % (42-75); PLATELET COUNT 296 X10'3 (140-440); RED BLOOD COUNT 4.91 X10'6 (4.20-5.60)
--- NOTE | 2019-02-06 07:07 | NUR ---
Patient in room HEBER 347. I have received report from LALITHA Boyd and had the opportunity to ask questions and assume patient care.
[2019-02-06 07:14] VITALS: BP 132/80
[2019-02-06 07:23] LABS: ANISOCYTOSIS 3+; HYPOCHROMASIA 2+; MICROCYTOSIS 1+; PLATELET ESTIMATE NORMAL
[2019-02-06] MEDS: pantoprazole 40mg Tablet.DR PO SCH (08:54)
[2019-02-06] MEDS: levoTHYROXINE 25mcg tablet PO SCH (08:54)
[2019-02-06] MEDS: enoxaparin 40mg/0.4ml syringe SQ SCH (08:54)
[2019-02-06] MEDS: gabapentin 100mg capsule PO SCH (08:54)
[2019-02-06 11:00] VITALS: BP 127/67
--- NOTE | 2019-02-06 18:34 | NUR ---
Patient in room HEBER 347. I have received report from LALITHA Still and had the opportunity to ask questions and assume patient care.
--- NOTE | 2019-02-06 18:41 | NUR ---
Problems reprioritized. Patient report given, questions answered & plan of care reviewed with LALITHA Hernandez.
--- NOTE | 2019-02-06 18:46 | NUR ---
Problems reprioritized. Patient report given, questions answered & plan of care reviewed with LALITHA Hernandez.
[2019-02-06 20:00] VITALS: BP 144/77
[2019-02-06] MEDS: linezolid 600mg tablet PO SCH (20:42)
[2019-02-06] MEDS: mineral oil/petrolatum, white cream 113gm jar TP SCH (20:42)
--- NOTE | 2019-02-06 23:25 | NUR ---
Problems reprioritized. Patient report given, questions answered & plan of care reviewed with LALITHA Carty.
--- NOTE | 2019-02-06 23:25 | NUR ---
Patient in room HEBER 347. I have received report from Mary DOTY and had the opportunity to ask questions and assume patient care. Patient is currently sitting on edge of bed after using BSC. Addendum: 02/07/19 at 0147 by Machelle Silveira RN Agree with previous assessment. Patient also found trying to remove her any hose, stating that she did not want to wear them as too tight. Advised that they would be put on in the AM. Patient allowed for skid proof socks at least as getting in/out of bed by herself.
[2019-02-07] VITALS: BP 127/91
--- NOTE | 2019-02-07 01:16 | NUR ---
Tabs alarm applied for saftey as patient wants a sleeper. Pt. states that she has not had restoril before.
[2019-02-07] MEDS: ipratropium/albuterol 3ml nebule NEB SCH ×3 (03:06→12:22)
--- NOTE | 2019-02-07 04:30 | NUR ---
Patient refused lab to draw when they came around. Lab said they will come back at 7am.
[2019-02-07] MEDS: HYDROcodone/acetaminophen 5mg/325mg tablet PO PRN ×2 (05:10→09:04)
--- NOTE | 2019-02-07 06:00 | NUR ---
Problems reprioritized. Patient report given, questions answered & plan of care reviewed with Tessy DOTY.
[2019-02-07 07:00] VITALS: BP 152/95
[2019-02-07] MEDS: linezolid 600mg tablet PO SCH (09:01)
[2019-02-07] MEDS: levoTHYROXINE 25mcg tablet PO SCH (09:01)
[2019-02-07] MEDS: pantoprazole 40mg Tablet.DR PO SCH (09:01)
[2019-02-07] MEDS: enoxaparin 40mg/0.4ml syringe SQ SCH (09:01)
[2019-02-07] MEDS: gabapentin 100mg capsule PO SCH (09:01)
[2019-02-07] MEDS: LORazepam 1 MG tablet PO PRN (09:03)
[2019-02-07] MEDS: mineral oil/petrolatum, white cream 113gm jar TP SCH (09:07)
[2019-02-07] MEDS ORDERED: GLIM2TAB PO (10:11)
[2019-02-07] MEDS ORDERED: LINE600T14 PO (10:11)
[2019-02-07] MEDS ORDERED: SITA100T11 PO (10:11)
--- NOTE | 2019-02-07 12:53 | NUR ---
Paged Dr. Blackman - pt requesting a Rx for 5 more Graff's for d/c to cover her through the weekend since she lives in [place] and the weather has been bad there with the snow.
--- NOTE | 2019-02-07 13:56 | NUR ---
PATIENT STABLE AND APPROPRIATE FOR DISCHARGE, IV TAKEN OUT, EDUCATION GIVEN, ALL BELONGINGS SENT WIR Addendum: 02/07/19 at 2006 by Tessy Yao RN WITH PATIENT, MEDS E-SCRIPTED, PATIENT SENT WITH PRESCRIPTION FOR NORCO, PATIENT TAKEN TO LOBBY BY WHEELCHAIR TO AN AWAITING CAR WHERE A FRIEND WILL TAKE PATIENT HOME
== END 2019-02-07 13:57 | disposition home or self-care (01) | DRG 469 ==
LOC: ER 07:41 → ED HOLD 09:29 → SUR 3N 10:37
PROVIDERS: ADMIT Internal Medicine; ATTEND Family Medicine
DX: N17.9 Acute kidney failure, unspecified (principal); I27.81 Cor pulmonale (chronic); I11.0 Hypertensive heart disease with heart failure; L03.115 Cellulitis of right lower limb; E66.01 Morbid (severe) obesity due to excess calories; I50.810 Right heart failure, unspecified; E86.0 Dehydration; L03.116 Cellulitis of left lower limb; E03.9 Hypothyroidism, unspecified; E11.9 Type 2 diabetes mellitus without complications; R62.7 Adult failure to thrive; F32.9 Major depressive disorder, single episode, unspecified; G89.29 Other chronic pain; E78.00 Pure hypercholesterolemia, unspecified; E78.5 Hyperlipidemia, unspecified; G47.33 Obstructive sleep apnea (adult) (pediatric); F41.9 Anxiety disorder, unspecified; J44.9 Chronic obstructive pulmonary disease, unspecified; N61.0 Mastitis without abscess; Z68.43 Body mass index [BMI] 50.0-59.9, adult; Z91.19 Patient's noncompliance with other medical treatment and regimen; Z79.899 Other long term (current) drug therapy
CPT/HCPCS: 36415; 71045; 76642; 80048; 80053; 82948; 83880; 84443; 85025; 93005; 94640; 94760; 96374; 96375; 97116; 97161; 97530; 99285; G0378; J1650; J1940; J2060; J7030